=== PATIENT | female | born 1950 | race Caucasian/White ===

== ENCOUNTER 2016-10-13 05:56 | Inpatient (IN) | payer MEDICARE, OTHER ==
[~2016-10-13] VITALS: Ht 165.1 cm; Wt 79.1 kg
[2016-10-13] VITALS (14 sets, daily range): BP systolic 118–158; BP diastolic 54–100; Ht 165.1 cm; Wt 79.1 kg
--- NOTE | 2016-10-13 05:40 | NUR ---
PT ARRIVED VIA BED AND EMS STAFF. AOX4. PARTIAL LINEN CHANGE COMPLETE. DENIES PAIN AT THIS TIME. ICU MONITORING ATTACHED. VSS, UNLABORED RESPIRATIONS. PT REPOSITIONED FOR COMFORT. CALL LIGHT AND BEDSIDE TABLE WITHIN PT REACH. CPOC.
[~2016-10-13 05:56] MED LIST: BAYER CHEWABLE81 MG PO; CARDURA2 MG PO; LIPITOR10 MG PO; PLAVIX75 MG PO; PRINIVIL20 MG PO
[2016-10-13 06:46] LABS: BASOPHILS 0.1 % (0.0-2.0); EOSINOPHILS 0.4 % (0-7); HEMATOCRIT 31.2 % (36.0-48.0); IMMATURE GRANULOCYTES 0.4 % (0-5); LYMPHOCYTES 8.3 % (15-50); MCH 29.2 pg (26.0-34.0); MCHC 32.1 g/dL (31.0-37.0); MEAN PLATELET VOLUME 10.1 fL (7.4-10.4); MONOCYTES 5.5 % (2-11); NEUTROPHILS 85.3 % (40-80); PLATELET COUNT 191 10x3/uL (130-400); RBC 3.43 10x6/uL (4.00-5.40); RDW 15.3 % (11.5-14.5); WBC 16.6 10x3/uL (4.8-10.8)
--- NOTE | 2016-10-13 07:00 | NUR ---
REC'D REPORT FROM OUTGOING RN - PT RESTING SUPINE IN BED VSS. REQUESTS BED LONGO TO URINATE. BATHED PT. NO ACTIVE BLEEDING NOTED. CONTINUE POC.
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
[2016-10-13] MEDS ORDERED: ISOSORBIDE MONO30 M1 PO (10:02)
[2016-10-13] MEDS ORDERED: NORVASC10 MG PO (10:03)
[2016-10-13] MEDS ORDERED: CARDURA4 MG PO (10:04)
[2016-10-13 11:49] LABS: HEMOGLOBIN 10.1 g/dL (12-16)
--- NOTE | 2016-10-13 12:00 | NUR ---
PT EATING CLEAR LIQUID DIET - DR. ELLISON AT BEDSIDE FOR ASSEMENT.
--- NOTE | 2016-10-13 12:10 | NUR ---
PT EATHING LUNCH - DR. MEJÍA AT BEDSIDE FOR ASSESSMENT - REVIEWED ELVATED B/P - ORDERS REC'D WILL CONTINUE POC
[2016-10-13 12:56] LABS: APPEARANCE CLEAR (CLEAR); BACTERIA FEW /hpf (NONE SEEN); BILIRUBIN NEGATIVE (NEGATIVE); COLOR STRAW (YELLOW); EPITHELIAL CELLS 0-5 /hpf (0-5); GLUCOSE NEGATIVE (NEGATIVE); KETONE NEGATIVE (NEGATIVE); LEUKOCYTE ESTERASE NEGATIVE (NEGATIVE); NITRITE NEGATIVE (NEGATIVE); PROTEIN NEGATIVE (NEGATIVE); RED CELLS - URINE 0-5 /hpf (0-5); UROBILINOGEN NORMAL (NORMAL); WHITE CELLS - URINE 0-5 /hpf (0-5)
--- NOTE | 2016-10-13 13:00 | NUR ---
SPOKE TO ELIO KULKARNI, INFORMED THIS RN PT HAS DEMONSTRATED SOME 'FORGETFULLNESS', PT LIVES ALONE. WILL INFORM
--- NOTE | 2016-10-13 14:18 | NUR ---
PT RESTING, EYES CLOSED - EASILY AROUSED BY TACKTILE STIMULI - PT ASKED FOR BED PAIN TO URINATE. PT STATED HE PAIN WAS STILL 04/18.
--- NOTE | 2016-10-13 15:20 | NUR ---
PAGED DR. ELLISON - PT SPIKED TEMP 101.5, TACHYCARDIA 131, ELEVATED WBC 16.5, PT HAS NO GI BLEED ON THIS SHIFT. REVIEWED RECENT H/H 07/09. TOV ORDERED CXR, BLOOD CULTURE X 2, ROCEPHIN Q24, ZITRHOMAX 500 G Q24, FLU SWAB. ALSO, ASKED MD IF PT IS MEDICALLY STABLE? CAN PT BE TRANSFERRED TO THE FLOOR IF ICU BED IS NEEDED. MD APPROVED TRANSFER IF NECESSARY.
--- NOTE | 2016-10-13 16:00 | NUR ---
I&O COMPLETE - DINNER TRAY SET UP FOR PT - CONT. POC.
--- NOTE | 2016-10-13 17:39 | NUR ---
PAGED DR. RIBERA - ASKED IF PT MAY BE TRANSFERRED TO [facility]. REVIEWED H/H 10.10/09. VSS EXCEPT ELEVATED TEMP AND TACHYCARDIA 117/BPM, B/P 121/74 NO BLEEDS SINCE PT WAS ADMITTED TO ICU. AGREED TO TRANSFER.
--- NOTE | 2016-10-13 17:52 | NUR ---
CALLED REPORT TO SHIELA MCNALLY, MED SURG, TELEMETERY.
--- NOTE | 2016-10-13 18:23 | NUR ---
PATIENT RECEIVED TO FLOOR FROM ICU VIA BED. NO SIGNS OF DISTRESS NOTED. SCDS ON BILATERALLY. ORIENTED TO ROOM. SIDE RAILS UP X2. BED IN LOW POSITION. CALL LIGHT IN REACH.
--- NOTE | 2016-10-13 18:27 | NUR ---
TRANSFERRED PT TO ROOM 2202 ON TELEMETERY VIA BED X2. ALL PERSONAL POSSESSIONS WERE SENT WITH PT.
[2016-10-13] MEDS ORDERED: METOPROLOL TART50 MG PO (18:48)
[2016-10-13] MEDS ORDERED: LIPITOR80 MG PO (18:48)
[2016-10-13 18:56] LABS: HEMATOCRIT 31.2 % (36.0-48.0); HEMOGLOBIN 10.2 g/dL (12-16)
[2016-10-13] MEDS ORDERED: CARDURA2 MG PO (19:16)
[2016-10-14] VITALS (7 sets, daily range): BP systolic 94–138; BP diastolic 47–71
[2016-10-14 03:43] LABS: BASOPHILS 0.1 % (0.0-2.0); EOSINOPHILS 0.2 % (0-7); HEMATOCRIT 29.9 % (36.0-48.0); HEMOGLOBIN 9.8 g/dL (12-16); IMMATURE GRANULOCYTES 0.4 % (0-5); LYMPHOCYTES 9.7 % (15-50); MCH 28.8 pg (26.0-34.0); MCHC 32.8 g/dL (31.0-37.0); MONOCYTES 15.3 % (2-11); NEUTROPHILS 74.3 % (40-80); PLATELET COUNT 186 10x3/uL (130-400); RDW 15.2 % (11.5-14.5); WBC 11.2 10x3/uL (4.8-10.8)
[2016-10-14 03:44] LABS: MCV 87.9 fL (80.0-100.0)
--- NOTE | 2016-10-14 07:10 | NUR ---
PATIENT RECEIVED IN LOW KIM POSITION RESTING QUIETLY. RESPIRATIONS EVEN AND UNLABORED. SIDE RAILS UP X2. BED IN LOW POSITION. CALL LIGHT IN REACH.
--- NOTE | 2016-10-14 08:20 | NUR ---
PATIENT SITTING UP ON SIDE OF BED ALERT. RESPIRATIONS EVEN AND UNLABORED. SCHEDULED MEDICATION ADMINISTERED. C/O PAIN 10/10 TO RIGHT KNEE. 2 TAB NORCO ADMINISTERED PER PRN ORDER. NO FURTHER NEEDS VOICED. SIDE RAILS UP X2. BED IN LOW POSITION. CALL LIGHT IN REACH.
[2016-10-14 10:59] LABS: HEMATOCRIT 30.4 % (36.0-48.0); HEMOGLOBIN 9.8 g/dL (12-16)
--- NOTE | 2016-10-14 11:25 | NUR ---
PATIENT IN BED RESTING WITH EYES CLOSED. RESPIRATIONS EVEN AND UNLABORED. WAKES EASY. SCHEDULED MEDICATION ADMINISTERED. FAMILY PRESENT. SIDE RAILS UP X1. BED IN LOW POSITION. CALL LIGHT IN REACH.
--- NOTE | 2016-10-14 13:30 | NUR ---
PATIENT SITTING UP ON SIDE OF BED ALERT AND VISITING WITH GUESTS. RESPIRATIONS EVEN AND UNLABORED. SIDE RAILS UP X2. BED IN LOW POSITION. CALL LIGHT IN REACH.
--- NOTE | 2016-10-14 15:40 | NUR ---
PATIENT SITTING UPRIGHT IN BED WITH FAMILY PRESENT. DENIES NEEDS. BED IN LOW POSITION. CALL LIGHT IN REACH.
--- NOTE | 2016-10-14 17:00 | NUR ---
PATIENT SITTING UPRIGHT IN BED WATCHING TV. DENIES NEEDS. FAMILY PRESENT. CALL LIGHT IN REACH. BED IN LOW POSITION.
--- NOTE | 2016-10-14 23:06 | NUR ---
PT LAYING IN BED NO DISTRESS OBSERVED RESPERATIONS EVEN AND UNLABORED ON ROOM AIR CALL LIGHT IN REACH SR X2 BED LOW AND LOCKED WILL MONITOR
[2016-10-15 04:00] VITALS: BP 130/64
[2016-10-15 05:42] LABS: BASOPHILS 0.2 % (0.0-2.0); EOSINOPHILS 1.5 % (0-7); HEMATOCRIT 27.6 % (36.0-48.0); HEMOGLOBIN 8.8 g/dL (12-16); IMMATURE GRANULOCYTES 0.3 % (0-5); LYMPHOCYTES 15.5 % (15-50); MCH 28.3 pg (26.0-34.0); MCHC 31.9 g/dL (31.0-37.0); MCV 88.7 fL (80.0-100.0); MEAN PLATELET VOLUME 10.4 fL (7.4-10.4); MONOCYTES 15.3 % (2-11); NEUTROPHILS 67.2 % (40-80); PLATELET COUNT 200 10x3/uL (130-400); RBC 3.11 10x6/uL (4.00-5.40); RDW 15.1 % (11.5-14.5); WBC 10.1 10x3/uL (4.8-10.8)
[2016-10-15 06:13] LABS: ANION GAP 11.7 mmol/L (8-16); CARBON DIOXIDE 25.4 mmol/L (21.0-32.0); POTASSIUM - SERUM 3.1 mmol/L (3.5-5.1)
--- NOTE | 2016-10-15 07:56 | NUR ---
PT ASSESSMENT COMPLETE NO ACUTE DISTRESS NOTED VOICES ALL NEEDS OT STAFF AWAKE AND ALERT ORIETNED X 3 LUNGS CLEAR BILATERALLY BOWEL SOUNDS ACTIVE X 4 QUADS DENEIS ACUTE VISIBLE BLOOD TO STOOL AT THIS TIME. FAMILY AT BEDSIDE. CALL LIGHT IN REACH SIDE RAILS UP X 2
[2016-10-15 08:10] VITALS: BP 125/64
[2016-10-15 11:06] LABS: HEMATOCRIT 29.8 % (36.0-48.0); HEMOGLOBIN 9.7 g/dL (12-16)
[2016-10-15 11:31] VITALS: BP 108/54
--- NOTE | 2016-10-15 14:41 | NUR ---
NUTRITION MONITORING & EVAL CHART REVIEWED. PT TOLERATING FULL LIQUID DIET, 100% INTAKE. WILL MONITOR DIET ADVANCEMENT, PT PROGRESS. RD FOLLOWING
[2016-10-15 16:26] VITALS: BP 116/54
--- NOTE | 2016-10-15 18:17 | NUR ---
PIV RESIDTED DUE TO INFILTRATION TO LEFT INNER FORARM 22 GA X 1 STICK. PAIN MED PER ORDER GIVEN TOLERATES WELL
[2016-10-15 18:50] LABS: HEMATOCRIT 27.6 % (36.0-48.0)
[2016-10-15 21:00] VITALS: BP 91/47
[2016-10-16] VITALS (17 sets, daily range): BP systolic 70–125; BP diastolic 39–85
--- NOTE | 2016-10-16 04:00 | NUR ---
PATIENT SLEEPING WITH NO DISTRESS NOTED. SISTER AT BEDSIDE. CALL LIGHT WITHIN REACH.
[2016-10-16 05:58] LABS: BASOPHILS 0.3 % (0.0-2.0); EOSINOPHILS 2.9 % (0-7); HEMATOCRIT 26.6 % (36.0-48.0); HEMOGLOBIN 8.5 g/dL (12-16); IMMATURE GRANULOCYTES 0.6 % (0-5); LYMPHOCYTES 18.4 % (15-50); MCH 28.3 pg (26.0-34.0); MCV 88.7 fL (80.0-100.0); MEAN PLATELET VOLUME 10.5 fL (7.4-10.4); MONOCYTES 8.9 % (2-11); NEUTROPHILS 68.9 % (40-80); PLATELET COUNT 218 10x3/uL (130-400); RDW 14.8 % (11.5-14.5); WBC 8.9 10x3/uL (4.8-10.8)
[2016-10-16 06:25] LABS: ALBUMIN 2.6 g/dL (3.4-5.0); ALKALINE PHOSPHATASE 93 U/L (46-116); ALT (SGPT) 17 U/L (10-68); CALC OSMOLALITY 277 mosm/kg (275-300); CALCIUM 8.1 mg/dL (8.5-10.1); CARBON DIOXIDE 24.5 mmol/L (21.0-32.0); CHLORIDE - SERUM 105 mmol/L (98-107); CREATININE - SERUM 0.8 mg/dL (0.6-1.3); GLUCOSE 117 mg/dL (74-106); POTASSIUM - SERUM 3.5 mmol/L (3.5-5.1); PROTEIN - SERUM 5.9 g/dL (6.4-8.2); SODIUM 139 mmol/L (136-145); eGFR NON AFRICAN AMERICAN 76 mL/min (90-120)
[2016-10-16 06:27] LABS: UREA NITROGEN 10 mg/dL (7-18)
--- NOTE | 2016-10-16 07:40 | NUR ---
PT RECEIVED LYING IN BED WATCHING TV. ASSESSMENT COMPLETED. PT STATES SHE HAD ONE BM 10/16 THAT WAS BLOODY AND ANOTHER ONE THAT ONLY HAD SPOTTING OF BLOOD. PT DENIES NEEDS AT THIS TIME. BED LOW. PHONE AND CALL LIGHT IN REACH. SIDE RAILS UP X2.
--- NOTE | 2016-10-16 09:14 | NUR ---
AM MEDS GIVEN. PT DENIES NEEDS.
[2016-10-16 10:01] LABS: BASOPHILS 0.2 % (0.0-2.0); EOSINOPHILS 2.4 % (0-7); HEMATOCRIT 25.6 % (36.0-48.0); HEMOGLOBIN 8.3 g/dL (12-16); IMMATURE GRANULOCYTES 0.5 % (0-5); LYMPHOCYTES 12.3 % (15-50); MCH 28.8 pg (26.0-34.0); MCHC 32.4 g/dL (31.0-37.0); MCV 88.9 fL (80.0-100.0); MEAN PLATELET VOLUME 10.2 fL (7.4-10.4); MONOCYTES 7.1 % (2-11); NEUTROPHILS 77.5 % (40-80); PLATELET COUNT 215 10x3/uL (130-400); RBC 2.88 10x6/uL (4.00-5.40); RDW 14.9 % (11.5-14.5); WBC 8.9 10x3/uL (4.8-10.8)
--- NOTE | 2016-10-16 11:34 | NUR ---
PT SITTING UP IN BED WITH FAMILY AT BEDSIDE. ADMINISTERED FLORAJEN PO. DENIES NEEDS AT THIS TIME. BED LOW. PHONE AND CALL LIGHT IN REACH. SIDE RAILS UP X2.
--- NOTE | 2016-10-16 13:12 | NUR ---
APPLIED DICLOFENAC TOPICAL GEL TO PTS RIGHT KNEE. PT DENIES OTHER NEEDS. BED LOW. PHONE AND CALL LIGHT IN REACH. SIDE RAILS UP X2.
--- NOTE | 2016-10-16 14:09 | NUR ---
PT SITTING UP IN BED WITH FAMILY MEMBER AT BEDSIDE. BP 70/42 NO SIGNS OF ACUTE DISTRESS NOTED. BLOOD CONSENT SIGNED AND ON CHART.
--- NOTE | 2016-10-16 14:22 | NUR ---
FLUID BOLUS INITIATED PER ORDER. PT BP 70/42. IV TO LEFT F/A PATENT. PULSE 118 SINUS TACH. NO ACUTE DISTRESS NOTED AT THIS TIME.
--- NOTE | 2016-10-16 14:33 | NUR ---
PT REFUSED BED ALARM. PT SIGNED REFUSAL. PLACED ON CHART.
--- NOTE | 2016-10-16 14:41 | NUR ---
Patient Name: NILTON AGVIRIA Admission Status: Elective Accout number: [id number] Admission Date: 10-13-2016 : 1950 Admission Diagnosis:GASTROINTESTINAL HEMORRHAGE, UNSPECIFIED Attending: EVERARDO Current LOS: 3 Anticipated DC Date: 10-18-2016 Planned Disposition: Home with Home Health Primary Insurance: [place] [employer] [place] Discharge Planning Comments: CM MET WITH PATIENT REGARDING DISCHARGE NEEDS AND PLANS. PATIENT STATED SHE LIVES ALONE AND HAS A SISTER (PETE) THAT HELPS WHEN NEEDED. PATIENT HAS 1 STEP W/O RAILS TO ENTER HOME AND NO STAIRS INSIDE. PATIENT STATED SHE IS INDEPENDENT WITH HER CARE AND HAS WALKER, WHEELCHAIR, AND SHOWER CHAIR AT HOME. PATIENTS PCP IS DR. ESCALANTE AND PHARMACY IS [facility]. PATIENT IS INTERESTED IN HOME HEALTH OR [facility]. CM WILL CONTINUE TO FOLLOW PATIENT WITH D/C NEEDS AND PLANS. PCP DR. ESCALANTE [facility]- [phone] PETE (SISTER) [phone] Furs Salesperson: Ya Weems Is the patient Alert and Oriented? Yes 0 * How many steps to enter\exit or inside your home? 1 W/O RAIL 0 * PCP DR. ESCALANTE 0 * Pharmacy [facility] 0 * Preadmission Environment Home Alone 0 * ADLs Independent 0 * Equipment Shower Chair Walker Wheelchair 0 * List name and contact numbers for known caregivers / representatives who currently or will assist patient after discharge: PETE (SISTER) [phone] 0 * Community resources currently utilized None 0 * Additional services required to return to the preadmission environment? Yes 0 * Can the patient safely return to the preadmission environment? Yes 0 * Has this patient been hospitalized within the prior 30 days at any hospital? No 0 Grand Total: 0
--- NOTE | 2016-10-16 14:58 | NUR ---
IV BOLUS COMPLETE. PT BP 125/67 AND HR 80. RESPIRATIONS 17, O2 96% R/A. TEMP 98.7. NO ACUTE DISTRESS NOTED AT THIS TIME.
--- NOTE | 2016-10-16 15:20 | NUR ---
20G IV SITED TO PT'S LEFT FOREARM X2 ATTEMPTS. PT TOLERATED WITH NO COMPLAINTS OF PAIN.
--- NOTE | 2016-10-16 15:30 | NUR ---
REPORT CALLED TO SHIELA OSBORN IN ICU.
--- NOTE | 2016-10-16 15:46 | NUR ---
BLOOD INITIATED AT THIS TIME PER ORDER. FAMILY AT BEDSIDE. TRANSFERRING TO ROOM 2307 VIA WHEELCHAIR.
--- NOTE | 2016-10-16 16:04 | NUR ---
PT ARRIVED TO ROOM VIA WHEELCHAIR. PT IS ALERT AND CONVERSANT. UNIT OF PRBC RUNNING IN LOWER LEFT FOREARM. CEFTRIAXONE RUNNING IN UPPER LEFT FOREARM. PT IS ON ROOM AIR. SATS OF 95%, HR 111, BP 120/68, 16 RESPIRATIONS. TEMP WITH TEMPORAL IS 96.8. BLOOD ADMIN SHEET SHOWS STARTING TEMP IS 99.3. WILL RECHECK TEMP WITH DIFFERENT THERMOMETER. PT HAS SCD'S, DENIES PAIN OTHER THAN IN HER RIGHT KNEE THAT HAS SWELLING.
--- NOTE | 2016-10-16 16:30 | NUR ---
PT BLOOD ADMINISTRATION SHEET STARTED BY NURSES ON MEDSURGE, BUT NO SIGNATURE ON PAGE OF WHO INITIATED THE ADMINISTRATION. CALLED AND SPOKE TO ABEL KUO AND SHE IS TO COME AND SIGN IT.
--- NOTE | 2016-10-16 17:07 | NUR ---
SISTER AT BEDSIDE AT THIS TIME. PT CONVERSANT. NO DISTRESS. HR 110, BP 116/65.
[2016-10-16 17:43] LABS: HEMATOCRIT 25.5 % (36.0-48.0); HEMOGLOBIN 8.2 g/dL (12-16)
--- NOTE | 2016-10-16 19:35 | NUR ---
okayed patient to transfer to floor tonight if we need a bed, if not tomorrow morning. States patient does not have to be in ICU.
--- NOTE | 2016-10-16 19:56 | NUR ---
Rehab Note- Rehab Prescreen Order received. Uncertain of patient's IRF benefits, will follow up wih the business office. Thank ou for this referral! Linnette Miller RN Clinical Liaison, Rehab Care/Debbie
--- NOTE | 2016-10-16 21:46 | NUR ---
IV RESITED TO LEFT WRIST. 2ND UNIT OF PRBC INFUSING. NO SIGNS OF REACTION. WILL CONTINUE TO MONITOR.
--- NOTE | 2016-10-16 23:41 | NUR ---
BLOOD FINISHED INFUSING AT 4339
[2016-10-17] VITALS (8 sets, daily range): BP systolic 102–124; BP diastolic 51–65
--- NOTE | 2016-10-17 03:00 | NUR ---
PT SLEEPING IN ROOM. VSS. WILL CONTINUE TO MONITOR.
[2016-10-17 04:54] LABS: BASOPHILS 0.2 % (0.0-2.0); EOSINOPHILS 4.4 % (0-7); IMMATURE GRANULOCYTES 0.8 % (0-5); LYMPHOCYTES 18.8 % (15-50); MCHC 33.7 g/dL (31.0-37.0); MEAN PLATELET VOLUME 9.8 fL (7.4-10.4); MONOCYTES 9.5 % (2-11); NEUTROPHILS 66.3 % (40-80); PLATELET COUNT 231 10x3/uL (130-400); RDW 15.4 % (11.5-14.5); WBC 8.3 10x3/uL (4.8-10.8)
[2016-10-17 05:35] LABS: ALBUMIN 2.6 g/dL (3.4-5.0); ANION GAP 12.8 mmol/L (8-16); BILIRUBIN - TOTAL 1.25 mg/dL (0.2-1.3); CALCIUM 8.2 mg/dL (8.5-10.1); CARBON DIOXIDE 26.3 mmol/L (21.0-32.0); CREATININE - SERUM 0.9 mg/dL (0.6-1.3); POTASSIUM - SERUM 3.1 mmol/L (3.5-5.1); PROTEIN - SERUM 6.3 g/dL (6.4-8.2)
[2016-10-17 05:48] LABS: HEMATOCRIT 31.5 % (36.0-48.0); HEMOGLOBIN 10.6 g/dL (12-16); MCV 86.3 fL (80.0-100.0); RBC 3.65 10x6/uL (4.00-5.40)
--- NOTE | 2016-10-17 07:30 | NUR ---
PT AWAKE, ALERT AND ORIENTED. NO REPORTED BLOOD BM OVERNIGHT. VSS. SHIFT ASSESSMENT COMPLETE. SEE FLOWSHEET FOR FINDINGS. PT IS ON ROOM AIR.
--- NOTE | 2016-10-17 09:45 | NUR ---
PATIENT SITTING UP IN BED ALERT. NO SIGNS OF DISTRESS NOTED. SISTER AT BEDSIDE. SIDE RAILS UP X2. BED IN LOW POSITION. CALL LIGHT IN REACH.
--- NOTE | 2016-10-17 09:50 | NUR ---
PT ARRIVED TO THE FLOOR AT THIS TIME FROM ICU. ORIENTED PT TO ROOM AND FLOOR. FIRST OF FOUR POTASSIUM RIDERS HANGING AT THIS TIME PER PROTOCOL. WILL CONTINUE TO MONITOR.
[2016-10-17 11:12] LABS: HEMATOCRIT 31.6 % (36.0-48.0); HEMOGLOBIN 10.7 g/dL (12-16)
--- NOTE | 2016-10-17 12:11 | NUR ---
Patient transfered to ICU overnight for hypotension. [facility]. Rehab will continue to follow her as she progresses with PT. Aminata Carpio RN Clinical Liaison, Rehab
--- NOTE | 2016-10-17 14:30 | NUR ---
PT TAKEN FOR CT.
--- NOTE | 2016-10-17 17:00 | NUR ---
STARTED GOLYTLY AT THIS TIME.
--- NOTE | 2016-10-17 17:59 | NUR ---
OT NOTE: PT COMPLETED TOILETING WITH SBA. PT COMPLETED TOILET HYGIENE WITH SBA. PT COMPLETED DYNAMIC STANDING/SITTING AXS FOR INCREASED I WITH ADLS. PT COMPLETED BUE AROM EXS AT EOB. THANK YOU, BUCK CALVILLO/Reagan
--- NOTE | 2016-10-17 18:20 | NUR ---
PT HAD A LARGE DARK COLORED STOOL IN THE BED AT THIS TIME. PT IS ASYMPTOMATIC. BED IN LOW POSITION AND CALL LIGHT WITHIN REACH. WILL CONTINUE TO MONTIOR.
[2016-10-17 19:35] LABS: HEMATOCRIT 30.8 % (36.0-48.0); HEMOGLOBIN 10.5 g/dL (12-16)
--- NOTE | 2016-10-17 20:00 | NUR ---
PATIENT SITTING UP IN BED TALKING WITH SISTER, ASSESSMENT COMPLETED, NO ACUTE DISTRESS NOTED, ENCOURAGED GO LYTELY , REMINDED OF NPO STATUS AFTER MIDNIGHT, UNDERSTANDING VOICED, DENIES NEEDS, CL IN REACH, WILL MONITOR
--- NOTE | 2016-10-17 21:50 | NUR ---
MEDS GIVEN PER MAR, VINICIO WELL, DENIES FURTHER NEEDS, SR'S UP X2, CL IN REACH
[2016-10-18 01:00] VITALS: BP 115/52
[2016-10-18 05:00] VITALS: BP 108/51
[2016-10-18 05:27] LABS: BASOPHILS 0.4 % (0.0-2.0); HEMOGLOBIN 10.9 g/dL (12-16); IMMATURE GRANULOCYTES 0.7 % (0-5); LYMPHOCYTES 21.2 % (15-50); MCH 28.8 pg (26.0-34.0); MCV 87.1 fL (80.0-100.0); MEAN PLATELET VOLUME 9.5 fL (7.4-10.4); MONOCYTES 10.7 % (2-11); PLATELET COUNT 275 10x3/uL (130-400); RBC 3.79 10x6/uL (4.00-5.40); RDW 15.5 % (11.5-14.5); WBC 8.2 10x3/uL (4.8-10.8)
[2016-10-18 05:53] LABS: ANION GAP 15.1 mmol/L (8-16); BILIRUBIN - TOTAL 0.6 mg/dL (0.2-1.3); CALCIUM 8.4 mg/dL (8.5-10.1); CARBON DIOXIDE 26.4 mmol/L (21.0-32.0); CREATININE - SERUM 0.9 mg/dL (0.6-1.3); POTASSIUM - SERUM 3.5 mmol/L (3.5-5.1); PROTEIN - SERUM 6.5 g/dL (6.4-8.2)
[2016-10-18 07:44] VITALS: BP 114/56
--- NOTE | 2016-10-18 07:50 | NUR ---
WALKING ROUNDS MADE AT THIS TIME. IV TO LEFT FOREARM LEAKING AROUND INSERTION SITE. IV D/C WITH CATH TIP INTACT. CONEST FORMS SIGNED AND WITNESSED FOR COLONOSCOPY WITH TIVA. PT DENIES QUESTIONS OR CONCERNS. ALERT AND ORIENTED X4, RESPIRATIONS EVEN AND NON LABORED. CALL LIGHT IN REACH, WILL CONTINUE WITH PLAN OF CARE. SRX2 WITH BED IN LOWEST POSITION AND WHEELS LOCKED.
--- NOTE | 2016-10-18 08:50 | NUR ---
SCHEDULED IV MEDICATIONS ADMINSITERED AT THIS TIME. 20G IV RE-SITED TO PT'S LEFT UPPER FOREARM X3 ATTEMPTS. PT TOLERATED WITHOUT COMPLAINTS. REMAINS NPO FOR COLONOSCOPY. DENIES NEEDS AT PRESENT. CALL LIGHT IN REACH, WILL CONTINUE WITH PLAN OF CARE.
[2016-10-18 10:47] LABS: HEMATOCRIT 34.2 % (36.0-48.0); HEMOGLOBIN 11.4 g/dL (12-16)
--- NOTE | 2016-10-18 11:35 | NUR ---
REMAINS NPO FOR COLONOSCOPY AT THIS TIME. SISTER AT BEDSIDE. DENIES NEEDS AT THIS TIME. CALL LIGHT IN REACH, WILL CONTINUE WITH PLAN OF CARE.
[2016-10-18 12:08] VITALS: BP 126/65
--- NOTE | 2016-10-18 12:55 | NUR ---
NUTRITION MONITORING & EVAL CHART REVIEWED. PT NPO FOR COLONOSCOPY. WILL PROVIDE DIET WHEN RESUMED, MONITOR PO INTAKE. RD FOLLOWING
--- NOTE | 2016-10-18 13:45 | NUR ---
SCHEDULED MEDICATIONS ADMINISTERED AT THIS TIME. PRE OPERATIVE MEDICATIONS ADMINSITERED AT THIS TIME. CALL LIGHT IN REACH. WILL CONTINUE WITH PLAN OF CARE.
[2016-10-18 15:49] VITALS: BP 107/52
--- NOTE | 2016-10-18 19:30 | NUR ---
PATIENT SITTING UP IN BED TALKING WITH SISTER, ASSESMENT COMPLETED, NO ACUTE DISTRESS NOTED, DENIES NEEDS AT THIS TIME, FALL PRECAUTIONS IN PLACE, CL IN REACH, WILL MONITOR
[2016-10-18 20:38] VITALS: BP 142/75
--- NOTE | 2016-10-18 20:57 | NUR ---
MEDS GIVEN PER MAR, VINICIO WELL, FAMILY IN ROOM, CL IN REACH
[2016-10-19] VITALS: BP 115/57
[2016-10-19 02:53] LABS: BASOPHILS 0.4 % (0.0-2.0); EOSINOPHILS 5.4 % (0-7); HEMOGLOBIN 10.7 g/dL (12-16); IMMATURE GRANULOCYTES 0.4 % (0-5); LYMPHOCYTES 18.5 % (15-50); MCHC 32.4 g/dL (31.0-37.0); MEAN PLATELET VOLUME 9.4 fL (7.4-10.4); MONOCYTES 8.7 % (2-11); NEUTROPHILS 66.6 % (40-80); PLATELET COUNT 272 10x3/uL (130-400); RBC 3.69 10x6/uL (4.00-5.40); RDW 15.4 % (11.5-14.5); WBC 9.5 10x3/uL (4.8-10.8)
[2016-10-19 03:02] LABS: MCV 89.4 fL (80.0-100.0)
[2016-10-19 03:06] LABS: ALBUMIN 2.8 g/dL (3.4-5.0); ANION GAP 11.2 mmol/L (8-16); BILIRUBIN - TOTAL 0.38 mg/dL (0.2-1.3); CALCIUM 8.5 mg/dL (8.5-10.1); CARBON DIOXIDE 28.2 mmol/L (21.0-32.0); POTASSIUM - SERUM 3.4 mmol/L (3.5-5.1); PROTEIN - SERUM 6.6 g/dL (6.4-8.2)
[2016-10-19 04:00] VITALS: BP 116/61
--- NOTE | 2016-10-19 05:49 | NUR ---
40 MEQ KCL GIVEN PER E. PROTOCOL FOR LEVEL OF 3.4, VINICIO WELL, LABS ORDERED TO RECHECK, CL IN REACH
[2016-10-19 08:03] VITALS: BP 137/62
--- NOTE | 2016-10-19 09:15 | NUR ---
AWAKE AND ALERT AT THIS TIME. TOLERATING A REGULAR DIET WITHOUT NAUSEA OR BLOODY STOOLS. PAIN TO RIGHT KNEE STABLE AT 5/10 ON PAIN SCALE. DENIES NEEDS AT THIS TIME. REFUSES BED ALARM AND DECLINATION SHEET ON PT'S CHART. CALL LIGHT IN REACH, SRX2 WITH BED IN LOWEST POSITION AND WHEELS LOCKED. WILL CONTINUE WITH PLAN OF CARE.
[2016-10-19 11:11] VITALS: BP 122/62
[2016-10-19 11:23] LABS: HEMATOCRIT 34.7 % (36.0-48.0); HEMOGLOBIN 11.2 g/dL (12-16)
--- NOTE | 2016-10-19 13:04 | NUR ---
FLU VACCINATION INTFORMATION SHEET PROVIDED TO PT. PT DENIES QUESTIONS OR CONCERNS. ADMINISTERED VACCINATION IN LEFT DELTOID MUSCLE. TOLERATED W/O COMPLAINTS. TO BE DISCHARGED TO REHAB LATER TODAY. DENIES FURTHER NEEDS AT PRESENT. WILL CONTINUE WITH PLAN OF CARE.
[2016-10-19] MEDS ORDERED: VOLTAREN100 GM TOPICAL (14:11)
[2016-10-19] MEDS ORDERED: ZITHROMAX 500M500 MG IV (14:11)
[2016-10-19] MEDS ORDERED: ROCEPHIN 1 GM/D51 G1 IV (14:11)
[2016-10-19] MEDS ORDERED: PROTONIX I40 MG/VIAL IV (14:11)
--- NOTE | 2016-10-19 14:21 | OP ---
PATIENT NAME: NILTON CHRISTINE MEDICAL RECORD: [id number] :52 LOCATION:[id number] ADMISSION DATE:10/13/16 SURGEON: ARNOL WOODWARD MD DATE OF OPERATION: 10/18/2016 PROCEDURE: Colonoscopy with biopsy and EGD with biopsy. ATTENDING PHYSICIAN: Carine Fernandez MD PRIMARY CARE PHYSICIAN: Charito Escalante MD. INDICATIONS: Ms. Christine is a very pleasant 66-year-old woman with a history of coronary artery disease, status post PTCA to the RCA with stent placement approximately a year and a half ago (Dr Juanpablo Goldberg) who presented with lower GI bleeding. She had 3 episodes at home of significant rectal bleeding, but then after admission, her rectal bleeding resolved. She had one until 2 days ago when she had recurrence of her rectal bleeding times 1 with concomitant hypotension. She had a CT of her abdomen and pelvis on 10/17/2016 with finding showing the distal aorta to have significant atherosclerotic calcification and stenosis at the proximal iliac vessels, no obvious colonic masses were identified. Otherwise, the liver, spleen, stomach, gallbladder, pancreas, adrenal glands, kidneys, bowel gas pattern and bladder were unremarkable. She presents for inpatient colonoscopy and EGD to further evaluate episodes of gastrointestinal bleeding. PREMEDICATIONS: Total IV anesthesia, propofol 650 mg (history of coronary artery disease). INSTRUMENT: [employer] video colonoscope and Olympus video gastroscope. PROCEDURE AND FINDINGS: After receiving informed consent, Ms. Christine was prepared for colonoscopy. Digital rectal exam was performed that showed a few external hemorrhoidal tags. No fissure or fistulas, normal sphincter tone, no palpable rectal masses. The colonoscope was introduced per rectally and advanced to the cecum without difficulty. The cecum, IC valve, and appendiceal orifice were identified. As the colonoscope was withdrawn, careful inspection was made of the chris of the colon. Overall mucosa had normal vascular and fold pattern. There was no blood seen in the colon. There were multiple diverticula seen in the distal transverse, descending and sigmoid colon, but there were no signs of bleeding from any of the diverticula. There were multiple small (0.25 to 0.3 cm) sessile polyps scattered in the distal descending and sigmoid colon. Multiple polyps were cold biopsied. Retroflexion in rectum showed no internal hemorrhoids. A fair prep was present. Ms. Christine was then prepared for EGD. Gastroscope was introduced per orally and advanced to the duodenum without difficulty. The esophageal mucosa was without erythema, ulcers, strictures, masses, appeared normal down the GE junction. A small sliding type hiatal hernia is present. Gastric mucosa was notable only for mild prepyloric erythema and antral biopsies were obtained to rule out Helicobacter pylori. No lesions were seen along the incisura, in the cardia or fundus or in the body of the stomach. Pylorus was patent and competent. Duodenal mucosa was without erythema or ulcers, appeared normal through the second portion. Biopsies were taken from the second portion of duodenum to rule out celiac disease. The gastroscope was then withdrawn. Ms. Christine tolerated the procedure well, OPERATIVE REPORT [id number] NILTON CHRISTINE Dequan no immediate complications. ASSESSMENT: 1. Moderate left-sided diverticulosis coli, likely source of recent gastrointestinal bleeding with bleeding resolved as the effects of Plavix have waned. 2. Multiple small polyps in the descending and sigmoid colon, status post cold biopsy. 3. Small hiatal hernia. 4. Mild gastritis. RECOMMENDATIONS: 1. Advance diet. 2. Recheck CBC in a.m. 3. As her RCA stent is approximately a year and a half old, if possible, recommend resuming enteric-coated aspirin 81 mg p.o. daily, only and not resume Plavix at this time to reduce her risk of her recurrent bleeding. I recommend follow up with [facility] in the very near future. TRANSINT:[id number] Voice Confirmation ID: [id number] DOCUMENT ID: [id number] ARNOL WOODWARD MD at 1421 CC: CHARITO ESCALANTE MD [id number] DICTATION DATE: 10/18/16 1800 MED SURG RN: 10/18/16 1908 ADM IN [facility] [address] [place] [address]
--- NOTE | 2016-10-19 14:54 | NUR ---
CM REASSESSMENT NOTE: PATIENT IS DISCHARGING TO IP REHAB TODAY. FAMILY AWARE.
--- NOTE | 2016-10-19 17:00 | NUR ---
REPORT CALLED TO SHIELA ALEJANDRO ON REHAB. PAPERWORK SIGNED AND PT WISHES TO TRANSFER TO REHAB AFTER SHE FINISHES DINNER. WILL CONTINUE WITH PLAN OF CARE.
--- NOTE | 2016-11-02 08:46 | CN ---
PATIENT NAME:NILTON CHRISTINE MEDICAL RECORD: [id number] : 52 LOCATION:[id number] ADMIT DATE: 10/13/16 ACCOUNT: [id number] CONSULTING PHYSICIAN: CORY SIDHU MD REFERRING PHYSICIAN: MURALI ESCALANTE MD DATE OF CONSULTATION: 10/19/2016 Cardiology Consultation DIAGNOSES: 1. Lower gastrointestinal bleed. 2. Coronary artery disease. 3. Previous percutaneous transluminal coronary angioplasty stent greater than 1 year ago. 4. Hypertension. HISTORY OF PRESENT ILLNESS: Mrs. Christine presents with lower GI bleed. She is on aspirin and Plavix. Her last cardiac stent was over a year ago of the right coronary artery. She has had no recurrent anginal symptomatology. PHYSICAL EXAMINATION: GENERAL APPEARANCE: Well-nourished, well-developed, appears stated age. Level of distress, comfortable. PSYCHIATRIC: Mental status, alert, normal affect. Orientation, oriented to time, place and person. EYES: Lids and conjunctiva, noninjected. No discharge, no pallor. ENT: Lips, teeth, gums, normal dentition. Oropharynx, no cyanosis, no pallor. NECK: Carotid arteries, bilateral normal upstroke, no bruits, no thrills. JUGULAR VEINS: No jugular venous pressure or distention. CERVICAL LYMPH NODES: Nontender, nonenlarged. THYROID: Not enlarged. Nontender. No nodules. LUNGS: Respiratory effort, unlabored. CHEST: Normal curvature. No thoracic deformity. No chest wall tenderness. Percussion, resonant. Auscultation, clear. No wheezes, no rales, no rhonchi. CARDIOVASCULAR: Precordial exam, nondisplaced. No heaves or pericardial thrills. Rate and rhythm, regular. Heart sounds, normal S1, normal S2. No S3, no gallop, no rub. Systolic murmur, not heard. Diastolic murmur, not heard. EXTREMITIES: No cyanosis, no edema. Peripheral pulses, full and equal in all extremities, except as noted. No bruits appreciated. ABDOMEN: Soft, nondistended. Normal aorta. No bruit. Nontender. No masses. Liver, nontender, no hepatomegaly. Spleen, nontender, no splenomegaly. MUSCULOSKELETAL: No joint tenderness. No joint swelling. No erythema. NEUROLOGICAL: Normal gait, normal strength, normal tone. SKIN: Warm and dry. REVIEW OF SYSTEMS: The patient reports easy bruising but reports no swollen glands. The patient reports no fever, no night sweats, no significant weight gain, no significant weight loss. No significant exercise tolerance. The patient reports no dry eyes, no irritation, no vision change. Patient reports no difficulty hearing and no ear pain. Patient reports no frequent nose bleeds or nose and sinus problems. Patient reports on arm pain on exertion. No shortness of breath while lying down. No history of heart murmur. Patient reports no cough, no wheezing or coughing up blood. Patient reports no abdominal pain, no vomiting. Normal appetite. No diarrhea and not vomiting blood. No nausea and no constipation. Patient reports no incontinence. No CONSULT REPORT [id number] NILTON CHRISTINE difficulty urinating. No hematuria. No increased frequency. Patient reports no muscle aches. No weakness, no arthralgias, no back pain. No swelling of the extremities. Patient reports no abnormal mole, no jaundice, no rashes. Reports no loss of consciousness. No weakness and no numbness. No seizures, dizziness, or headaches. The patient reports no depression, no sleep disturbance, feeling safe in a relationship and no alcohol abuse. Patient reports on fatigue. Reports no runny nose or sinus pressure. No itching, no hives, and no frequent sneezing. OVERALL IMPRESSION: In light of the lower gastrointestinal bleed, we will discontinue aspirin and Plavix. We will see her back in the office as an outpatient. She does not need to restart these at this time. TRANSINT:[id number] Voice Confirmation ID: [id number] DOCUMENT ID: [id number] CORY SIDHU MD at 0846 CC: [id number] DICTATION DATE: 10/19/16 1051 SENIOR TELECOMMUNICATIONS SPECIALIST: 10/19/16 1314 DIS IN 10/19/16 [id number] [place] [address]
[2017-01-02] MEDS ORDERED: ZESTRIL10 MG PO (12:14)
== END 2016-10-19 18:30 | DRG 378 ==
LOC: D.MS 05:56 → D.ICU 05:56 → D.MS 18:23 → D.ICU 10-16 16:07 → D.MS 10-17 09:57
PROVIDERS: Emergency Medicine; Family Medicine; Internal Medicine Gastroenterology; ADMIT Family Medicine
PROC: 0DB98ZX Excision of Duodenum, Via Natural or Artificial Opening Endoscopic, Diagnostic (ICD-10-PCS; principal; 2016-10-18 14:00)
PROC: 0DBM8ZZ Excision of Descending Colon, Via Natural or Artificial Opening Endoscopic (ICD-10-PCS; principal; 2016-10-18 14:00)
PROC: 0DB68ZX Excision of Stomach, Via Natural or Artificial Opening Endoscopic, Diagnostic (ICD-10-PCS; principal; 2016-10-18 14:00)
PROC: 0DBN8ZZ Excision of Sigmoid Colon, Via Natural or Artificial Opening Endoscopic (ICD-10-PCS; principal; 2016-10-18 14:00)
DX: K57.91 Diverticulosis of intestine, part unspecified, without perforation or abscess with bleeding (principal); D62 Acute posthemorrhagic anemia; I10 Essential (primary) hypertension; I25.10 Atherosclerotic heart disease of native coronary artery without angina pectoris; E87.6 Hypokalemia; M17.11 Unilateral primary osteoarthritis, right knee; M81.0 Age-related osteoporosis without current pathological fracture; I95.9 Hypotension, unspecified; K44.9 Diaphragmatic hernia without obstruction or gangrene; K29.70 Gastritis, unspecified, without bleeding; D12.4 Benign neoplasm of descending colon; D12.5 Benign neoplasm of sigmoid colon

== ENCOUNTER 2016-10-19 15:08 | Inpatient (IN) | payer MEDICARE, OTHER ==
[~2016-10-19] VITALS: Ht 165.1 cm; Wt 74.8 kg
[~2016-10-19 15:08] MED LIST changes: +CARDURA4 MG PO; +ISOSORBIDE MONO30 M1 PO; +LIPITOR80 MG PO; +METOPROLOL TART50 MG PO; +NORVASC10 MG PO; +PROTONIX I40 MG/VIAL IV; +ROCEPHIN 1 GM/D51 G1 IV; +VOLTAREN100 GM TOPICAL; +ZITHROMAX 500M500 MG IV
--- NOTE | 2016-10-19 19:20 | NUR ---
SISTER SITTING IN ROOM WITH PATIENT, PT DENIES ANY NEEDS, DENIES ANY PAIN.
--- NOTE | 2016-10-19 21:30 | NUR ---
COMPLETING THE ADMISSION DOCUMENTATION, PT STATES SHE FEELS LIKE SHE WAS JUST DROPPED OFF, ANXIOUS, VERY DIFFICULT TO KEEP PATIENT ON TASK WITH ADMISSION HISTORY AND ASSESSMENT.
[2016-10-19 21:59] VITALS: BP 109/68
--- NOTE | 2016-10-20 00:11 | NUR ---
PT WORRIED ABOUT WHAT SHE IS SUPPOSED BE TO DOING, TRIED TO CALM AND REEXPLAINED REHAB. RESPIRATIONS REGULAR AND UNLABORED.
--- NOTE | 2016-10-20 06:21 | NUR ---
PT RESTING QUIETLY IN ROOM, VERY QUIET DURING THE NIGHT. DID REORIENT TO REHAB PROCESS PT WAS CONCERNED SHE WOULD HAVE TO GET SOMEPLACE AND DO SOMETHING. PT SEEMED TO UNDERSTAND THAT SHE WOULD NOT NEED TO GO ANY PLACE BY HERSELF.
--- NOTE | 2016-10-20 07:00 | NUR ---
Pt. was received at the beginning of this shift in bed awake and oriented x 3. Vital signs: Temp. 99.3, pulse 97, resp. 16, b/p 99/58, 02Sat. 98%. No voiced complaints of pain or discomfort. Her left arm is reserved. Call light is in reach. Will be monitoring her and assisting prn with adl's.
[2016-10-20 09:50] VITALS: Ht 165.1 cm; Wt 74.8 kg
[2016-10-20 10:01] VITALS: BP 116/56
--- NOTE | 2016-10-20 10:06 | NUR ---
PATIENT OBSERVED IN PHYSICAL THERAPY ROOM WORKING WITH OT.
--- NOTE | 2016-10-20 12:58 | NUR ---
PATIENT OBSERVED LYING IN BED. CHEST RISING AND FALLING. BREATHING EVEN AND UNLABORED. CALL LIGHT WITHIN REACH. BED IN LOWEST POSITION. SIDE RAILS UP TIMES TWO.
--- NOTE | 2016-10-20 17:46 | NUR ---
Pt. has had an uneventful day today. Pt's IV was resited into her left forearm. Antibiotics given per IV this afternoon. Pt. has been to therapy today and has participated well. Call light is in reach. Resting in bed watching tv. No complaints.
--- NOTE | 2016-10-20 19:30 | NUR ---
PT RESTING IN BED WATCHING TV. SISTER IN ROOM. PT DENIES NEEDS AT THIS TIME. BED LOW. CL IN REACH.
[2016-10-20 19:35] VITALS: BP 114/57
--- NOTE | 2016-10-20 21:50 | NUR ---
PT STATED SHE HAD A PAIN LEVEL 8/10. PT ORDERED AND GIVEN PRN TYLENOL AT THIS TIME WITH HS MEDS. PT DENIES FURTHUR NEEDS. WCTM. BED LOW. CL IN REACH.
--- NOTE | 2016-10-21 01:17 | NUR ---
PT RESTING, EYES CLOSED. BED LOW. CL IN REACH. WCTM.
--- NOTE | 2016-10-21 03:15 | NUR ---
PT RESTING, EYES CLOSED. BED LOW. CL IN REACH.
[2016-10-21 05:26] LABS: BASOPHILS 0.5 % (0.0-2.0); EOSINOPHILS 6.5 % (0-7); HEMATOCRIT 35.4 % (36.0-48.0); HEMOGLOBIN 11.5 g/dL (12-16); IMMATURE GRANULOCYTES 0.7 % (0-5); LYMPHOCYTES 17.7 % (15-50); MCH 29.1 pg (26.0-34.0); MCHC 32.5 g/dL (31.0-37.0); MCV 89.6 fL (80.0-100.0); MEAN PLATELET VOLUME 9.6 fL (7.4-10.4); MONOCYTES 9.1 % (2-11); NEUTROPHILS 65.5 % (40-80); PLATELET COUNT 321 10x3/uL (130-400); RBC 3.95 10x6/uL (4.00-5.40); WBC 8.4 10x3/uL (4.8-10.8)
--- NOTE | 2016-10-21 05:47 | NUR ---
PT STATED SHE WAS HAVING CHEST PAIN AND POINTED TO UPPER ANTERIOR RIBCAGE. PT PLACED ON TELEMETRY. AM MEDS GIVEN WITHOUT DIFFICULTY. WCTM. BED LOW. CL IN REACH.
[2016-10-21 06:23] LABS: ANION GAP 15.9 mmol/L (8-16); CARBON DIOXIDE 25.4 mmol/L (21.0-32.0); POTASSIUM - SERUM 4.3 mmol/L (3.5-5.1)
--- NOTE | 2016-10-21 06:42 | NUR ---
PT RESTING, EYES CLOSED. BED LOW. CL IN REACH. P
--- NOTE | 2016-10-21 08:18 | NUR ---
PATIENT OBSERVED SITTING UPRIGHT IN BED EATING BREAKFAST. PATIENT IS ALERT AND ORIENTED TIMES FOUR. BREATHING IS UNLABORED AND EVEN. CALL LIGHT AND WALKER IS WITHIN REACH.
[2016-10-21 08:23] VITALS: BP 109/60
--- NOTE | 2016-10-21 12:14 | NUR ---
PT. EATING LUNCH. DENIES ANY COMPLAINTS AT THIS TIME. CL AND WALKER WITHIN REACH. BED IN LOWEST POSITION.
--- NOTE | 2016-10-21 16:00 | NUR ---
IV IN LEFT LOWER FOREARM PATENT. ANTIBIOTICS RUNNING.
--- NOTE | 2016-10-21 17:00 | NUR ---
WATCHING TV.DENIES NEEDS.CL IN REACH.
[2016-10-21 19:20] VITALS: BP 110/57
--- NOTE | 2016-10-21 19:25 | NUR ---
PT IS RESTING IN BED WATCHING TV WITH HER SISTER. ALERT AND ORIENTED X 4. DENIES ACUTE PAIN OR DISCOMFORT. PT IS VERY TALKATIVE. VSS. LFA SALINE LOCK NOTED. SR'S ARE UP X 2 IN BED. CALL LIGHT AND BEDSIDE TABLE ARE WITHIN EASY REACH.
--- NOTE | 2016-10-21 21:45 | NUR ---
PT. IN BED WITH HOB UP FOR COMFORT AND LLE ELEVATED ON PILLOW. PT. WATCHING TV AND VISITING WITH FAMILY. PT. DENIES ANY NEEDS AT THIS TIME AND HAS HER CALL LIGHT WITHIN REACH. I.V. SITE IS TO HER LEFT HAND AT BASE OF THUMB. PT. STATES THIS IS THE 5TH I.V. SITE THAT SHE HAS HAD THIS HOSPITAL STAY SO THIS IS BEING VERY CAREFUL WITH IT.
--- NOTE | 2016-10-22 00:08 | NUR ---
PT RESTING IN BED WITH EYES CLOSED. UP TO BATHROOM PRN.
--- NOTE | 2016-10-22 03:01 | NUR ---
PT RESTING QUIETLY IN BED WITH EYES CLOSED.
--- NOTE | 2016-10-22 06:01 | NUR ---
RESTING IN BED WITH EYES CLOSED. PT UP AD GABRIELA TO BATHROOM PRN.
[2016-10-22 06:22] LABS: BASOPHILS 0.5 % (0.0-2.0); EOSINOPHILS 6.1 % (0-7); HEMATOCRIT 38.3 % (36.0-48.0); IMMATURE GRANULOCYTES 0.8 % (0-5); LYMPHOCYTES 16.4 % (15-50); MCH 28.8 pg (26.0-34.0); MCHC 31.3 g/dL (31.0-37.0); MEAN PLATELET VOLUME 9.5 fL (7.4-10.4); NEUTROPHILS 68.2 % (40-80); PLATELET COUNT 342 10x3/uL (130-400); RBC 4.17 10x6/uL (4.00-5.40); WBC 9.8 10x3/uL (4.8-10.8)
[2016-10-22 06:26] LABS: MCV 91.8 fL (80.0-100.0)
[2016-10-22 06:43] LABS: ANION GAP 11.1 mmol/L (8-16); CALCIUM 8.8 mg/dL (8.5-10.1); CARBON DIOXIDE 28.4 mmol/L (21.0-32.0); POTASSIUM - SERUM 4.5 mmol/L (3.5-5.1)
[2016-10-22 10:22] VITALS: BP 99/60
--- NOTE | 2016-10-22 15:35 | NUR ---
RESTING QUIETLY IN BED. DENIES NEEDS OR C/O. CALL LIGHT IN REACH
--- NOTE | 2016-10-22 17:44 | NUR ---
SITTING UP IN W/C EATING SUPPER. DENIES NEEDS
--- NOTE | 2016-10-22 19:32 | NUR ---
PT. IN BED WITH HOB UP FOR COMFORT AND HAS HER RLE ELEVATED ON PILLOW. PT. DENIES ANY PAIN AND HAS NO NEEDS AT THIS TIME. CALL LIGHT WITHIN REACH.
[2016-10-22 19:41] VITALS: BP 117/61
--- NOTE | 2016-10-22 20:01 | NUR ---
RESUMED CARE OF PT, PT WATCHING TV, ALERT & ORIENTED X4, UP AB GABRIELA, DENIES ANY NEEDS AT THIS TIME, CALL LIGHT IN REACH, WILL CONTINUE TO MONITOR
--- NOTE | 2016-10-22 23:03 | NUR ---
SLEEPING, CALL LIGHT IN REACH, WILL CONTINUE TO MONITOR
--- NOTE | 2016-10-23 01:00 | NUR ---
RECEIVED REPORT FROM LISA GALARZA LPN
--- NOTE | 2016-10-23 02:13 | NUR ---
PT RESTING WITH EYES CLOSED, RESP QUIET, NO DISTRESS NOTED, LEFT UNDISTURBED AT THIS TIME
--- NOTE | 2016-10-23 04:21 | NUR ---
PT RESTING WITH EYES CLOSED, RESP QUIET, NO DISTRESS NOTED, LEFT UNDISTURBED AT THIS TIME
--- NOTE | 2016-10-23 06:07 | NUR ---
PT RESTING WITH EYES CLOSED, AROUSES TO SOFT VERBAL STIMULATION, ADM 0600 MED PO PER MD ORDERS, SEE EMAR, PT DENIES NEEDS OR PAIN AT THIS TIME
--- NOTE | 2016-10-23 07:00 | NUR ---
SHIFT REPORT TO DAY SHIFT
--- NOTE | 2016-10-23 07:00 | NUR ---
Pt. was received in bed at the beginning of this shift. Awake and oriented x 3. No voiced complaints. She is speaking about going home this weekend perhaps. Vital signs: Temp. 98.3, pulse 91, resp. 14, b/p 110/56, 02Sat. 95%. Call light is in reach. Stable condition observed.
--- NOTE | 2016-10-23 12:00 | NUR ---
Pt. has had an uneventful day. She went to therapy and participated well. Will continue to observe and assist as needed. Call light in reach.
[2016-10-23 18:23] VITALS: BP 110/56
[2016-10-23 19:10] VITALS: BP 85/52
--- NOTE | 2016-10-23 19:50 | NUR ---
PT. SITTING UP IN W/C AND VISITING WITH FAMILY. PT. WANTS HER PAIN PILL WITH HER NIGHT TIME MEDS TONIGHT. ASSESSMENT COMPLETED. PT. WOULD ALSO LIKE HER SHOWER TONIGHT AND SHE HAS ALREADY BEEN REPORTED AND SHE WILL GET IT DONE TONIGHT. CALL LIGHT WITHIN REACH.
--- NOTE | 2016-10-23 22:10 | NUR ---
PT. IN BED WITH RLE ELEVATED ON PILLOW. PT. STATES THAT THE TYLENOL DID DECREASE HER PAIN. PT. CONTINUES TO VISIT WITH HER SISTER AND WAS INFORMED WHY THE TV WAS OUT. PT. HAS NO NEEDS AND HAS HER CALL LIGHT WITHIN REACH.
--- NOTE | 2016-10-23 23:47 | NUR ---
PT. IN BED WITH HOB UP AND LOOKING AT HER CELL PHONE SINCE THE TV'S ARE OUT DUE TO THE WEATHER. PT. DENIES ANY NEEDS AND HAS HER CALL LIGHT WITHIN REACH. PT. KEEPS HER RIGHT KNEE ELEVATED ON A PILLOW AT ALL TIMES FOR COMFORT.
--- NOTE | 2016-10-24 00:03 | NUR ---
PT. IN BED WITH HOB UP FOR COMFORT LYING ON HER LEFT SIDE WITH EYES CLOSED AND RESP. EVEN. CALL LIGHT IS WITHIN REACH.
--- NOTE | 2016-10-24 03:07 | NUR ---
PT. IN BED LYING ON HER RIGHT SIDE WITH EYES CLOSED AND RESP. EVEN. CALL LIGHT IS WITHIN REACH.
--- NOTE | 2016-10-24 05:38 | NUR ---
PT. IN BED LYING ON HER RIGHT SIDE WITH EYES CLOSED AND RESP. EVEN. CALL LIGHT WITHIN REACH.
[2016-10-24 05:56] LABS: BASOPHILS 0.6 % (0.0-2.0); EOSINOPHILS 5.9 % (0-7); HEMATOCRIT 37.5 % (36.0-48.0); HEMOGLOBIN 11.9 g/dL (12-16); IMMATURE GRANULOCYTES 0.8 % (0-5); MCH 29.1 pg (26.0-34.0); MCHC 31.7 g/dL (31.0-37.0); MCV 91.7 fL (80.0-100.0); MEAN PLATELET VOLUME 9.7 fL (7.4-10.4); MONOCYTES 10.1 % (2-11); NEUTROPHILS 61.6 % (40-80); PLATELET COUNT 312 10x3/uL (130-400); RBC 4.09 10x6/uL (4.00-5.40)
[2016-10-24 06:06] LABS: ANION GAP 15.4 mmol/L (8-16); CARBON DIOXIDE 25.5 mmol/L (21.0-32.0); CREATININE - SERUM 1.1 mg/dL (0.6-1.3); POTASSIUM - SERUM 4.9 mmol/L (3.5-5.1)
[2016-10-24 08:29] VITALS: BP 111/60
--- NOTE | 2016-10-24 09:44 | NUR ---
UP IN WHEELCHAIR IN THERAPY GYM AT THIS TIME. NO ACUATE DISTRESS NOTED. NEGAR ANY NEEDS. WILL CONTINUE PLAN FO CARE.
--- NOTE | 2016-10-24 12:10 | NUR ---
UP IN BED EATING LUNCH AT THIS TIME. DENIES ANY NEEDS. WILL CONTINUE PLAN FO CARE.
--- NOTE | 2016-10-24 14:36 | NUR ---
LYING IN BED WATCHING TV AT THIS TIME. LESLIE ANY NEEDS. WILL CONTINUE PLAN OF CARE.
--- NOTE | 2016-10-24 16:45 | NUR ---
CARE TEAM MEETING: TENATIVE DISCHARGE DATE IS 10/26/16. SHE WILL DISCHARGE HOME WITH HER SISTER. PATIENT HAS WALKER, SHOWER CHAIR, WHEELCHAIR. SHE USES [facility] . PCP IS DR. ESCALANTE. WILL CONTINUE TO FOLLOW WITH PATIENT UNTIL DISCHARGED
--- NOTE | 2016-10-24 17:31 | NUR ---
UP IN BED EATING SUPPER AT THIS TIME. DENIES ANY NEEDS. WILL CONTINUE PLAN FO CARE.
--- NOTE | 2016-10-24 18:51 | NUR ---
UP IN BED WATCHING TV AT THIS TIME. DENEIS ANY NEEDS. NO ACUTE DISTRESS NOTED. WILL CONTINUE PLAN OF CARE.
--- NOTE | 2016-10-24 19:15 | NUR ---
PT IN BED WITH EYES CLOSED AND CHEST RISING. RESPIRATIONS EVEN AND UNLABORED. NO COMPLAINTS OR CONCERNS NOTED AT THIS TIME. WATER AND CALL LIGHT IN REACH.
[2016-10-24 23:58] VITALS: BP 105/51
--- NOTE | 2016-10-25 01:10 | NUR ---
PT IN BED WITH EYES CLOSED AND CHEST RISING. RESPIRATIONS EVEN AND UNLABORED. NO CONCERNS NOTED AT THIS TIME. WATER AND CALL LIGHT IN REACH.
--- NOTE | 2016-10-25 05:23 | NUR ---
PT IN BED WITH EYES OPEN. COMPLAINS OF CONTINOUS PAIN TO RIGHT KNEE. PRN PAIN MEDS GIVEN EARLIER. STATES THAT IT HURTS MOST OF THE TIME. IF KEPT STILL PAIN IS RELEIVED. WATER AND CALL LIGHT IN REACH.
--- NOTE | 2016-10-25 07:00 | NUR ---
Pt. was received in bed awake and oriented x 3 at the beginning of this shift. No signs of any discomfort or distress. No voiced complaints. Vital signs: Temp. 97.7, pulse 88, resp. 14, b/p 113/61, 02Sat. 96%. Will be monitoring her throughout the day.
[2016-10-25 08:01] VITALS: BP 113/61
--- NOTE | 2016-10-25 10:08 | NUR ---
PATIENT DISCHARGING HOME ON 10/26/16. [facility] WILL PROVIDE NURSING, PT, OT.PATIENT HAS WALKER, SHOWER CHAIR, AND WHEELCHAIR. APPOINTMENTS: DR. ESCALANTE 11/01/16 @ 2:15, DR. SIDHU 10/30/16 @ 1:15, DR. BRISENO 11/06/16 @ 9:30. PATIENT EDUCATED ON SIGNES AND SYMPTOMS OF ANEMIA AND GI BLEED. EDUCATION SHEETS GIVEN TO PATIENT FOR HOME USE. PATIENT CHOICE FORM FOR HOME HEALTH AND [facility] FORM SIGNED, EXPLAINED AND FILED IN CHART. WILL CONTNIUE TO FOLLOW WITH PATIENT UNTIL DISCHARGED
--- NOTE | 2016-10-25 12:00 | NUR ---
Pt. has had an uneventful day. No changes to report. Stable condition observed. Pt. went to therapy this morning and participated well. Will continue to observe. Call light is in reach.
[2016-10-25 20:45] VITALS: BP 113/56
--- NOTE | 2016-10-25 21:21 | NUR ---
PT TOOK HS MEDS WITHOUT DIFFICULYT. PT FAMILY AT BEDSIDE. PT DENIES NEEDS AT THIS TIME. BED LOW. CL INR EACH.
--- NOTE | 2016-10-25 23:47 | NUR ---
PT RESTING IN BED WATCHING TV, DENIES NEEDS AT THIS TIME. BED LOW. CL IN REACH.
--- NOTE | 2016-10-26 06:04 | NUR ---
PT TOOK AM MEDS WITHOUT DIFFICULTY. PT DENIES NEEDS AT THIS TIME. BED LOW. CLIN REACH.
--- NOTE | 2016-10-26 07:50 | NUR ---
SITTING UP IN BED EATING BREAKFAST.
[2016-10-26 07:54] VITALS: BP 123/64
--- NOTE | 2016-10-26 10:44 | RHP ---
PATIENT: NILTON GAVIRIA MEDICAL RECORD: [id number] ACCOUNT: [id number] LOCATION:[id number] : 52 ADMISSION DATE: 10/19/16 REHABILITATION HISTORY AND PHYSICAL EXAMINATION POST ADMISSION PHYSICIAN EXAMINATION DATE OF ADMISSION TO REHAB: 10/19/2016 ADMITTING DIAGNOSIS: Acute GI bleed and acute blood loss anemia. Follow up for hypotension. HISTORY OF PRESENT ILLNESS: The patient is a 66-year-old patient, who is admitted with GI bleed, blood loss anemia, hypotension and reports that she had 3 episodes of ____ blood with subsequent fall related to dizziness. EMS was called and the patient was taken to [facility] ER, but transferred to [place] after being given blood and placed in the ER. She was also hypotensive. She has complained of knee pain after a fall, was unable to bear weight. She was tachycardic and had a temperature up to 101.7. GI and ortho were consulted. X-ray of the right knee showed a small suprapatellar effusion. Knee CT showed knee effusion, osteopenia and severe degenerative changes. A colonoscopy on October 18 showed GI bleed secondary to colonic diverticular bleed, the effects of Plavix. Prior to admit, she was markedly independent with ADLs and mobility. Currently, she is [id number] assist with ADLs and mobility secondary to knee pain and inability to fully extend the right knee. She lives alone and has stairs to go into her house. She cannot go home at this time, definitely needs inpatient rehab to get back to her prior level of functioning. COMORBIDITIES: Include a fever, tachycardia, fatigue, weakness, chronic hypertension, coronary artery disease, hypotension, severe osteoarthritis, knee pain, leukocytosis and anemia. PAST MEDICAL HISTORY: Significant for hypertension and coronary artery disease. PAST SURGICAL HISTORY: Includes a skin lesion removal, cardiac stent. She has had surgery on her right knee and left arm. ALLERGIES: CODEINE. CURRENT MEDICATIONS: Include Protonix 40 mg IV daily, Imdur 30 mg daily, Cardura 2 mg daily, Rocephin 1 g q.24 hours, Zithromax 500 mg IV daily, amlodipine 10 mg daily, polyethylene glycol 17 grams in 8 of water daily, lisinopril 20 mg b.i.d., Voltaren to apply q.i.d. and Lipitor 40 mg at bedtime. HABITS: No current alcohol or tobacco use. FAMILY HISTORY: Noncontributory. SOCIAL HISTORY: The patient hopes to return back home and get back to her prior level of functioning. REVIEW OF SYSTEMS: GENERAL: Does complain of weakness and fatigue. HEENT: Denies cold, cough or congestion. CARDIOVASCULAR: Denies chest pain. HISTORY AND PHYSICAL [id number] NILTON GAVIRIA PHYSICAL EXAMINATION: VITAL SIGNS: Stable, afebrile. GENERAL: Elderly female in no acute distress, alert upon exam. HEENT: Normocephalic, atraumatic. Mucosa moist. NECK: Supple. No lymphadenopathy. LUNGS: Clear at this time. HEART: Regular rate and rhythm. ABDOMEN: Benign. EXTREMITIES: No clubbing, cyanosis or edema. NEUROLOGIC: Intact. LABORATORY DATA: Her white count is 9.5, H&H of 11 and 35, and platelet count is 272. Chemistry showed a sodium 142, potassium 4.0, BUN and creatinine of 7 and 1.0, and blood sugar is noted be 116. All the LFTs were all within normal limits. ASSESSMENT: A 66-year-old female patient admitted to rehab with a working diagnosis of gastrointestinal bleed, complicated by blood loss anemia. The patient has potential to make improvement. We instituted the following multidisciplinary therapies including to, but not limited to physical, occupational, respiratory, speech, nutritional services, prosthetics and orthotics. Given her complex condition and risk for more complications, rehabilitation services cannot be provided at a low level of care such as a residential facility. PLAN: 1. Admit to [facility] rehab for intensive inpatient therapy to include the following disciplines: A. Physical therapy to improve gait, all transfer skills and bed mobility to a modified independent level. B. Occupational therapy to improve activities daily living to a modified independent level. C. Case management to assist with discharge planning and placement options. D. Nutrition to assist with nutritional needs. E. Rehabilitation nursing to assist in monitoring the patient's underlying conditions and to assist with any type of bowel or bladder management. 2. The patient's current medications and medical care will be continued. 3. The patient will be placed on standard fall precautions. 4. We will closely watch blood counts during her stay and monitor H&H. 5. We will go ahead and discuss this patient during care team staff meeting this week. TRANSINT:[id number] Voice Confirmation ID: [id number] DOCUMENT ID: [id number] HISTORY AND PHYSICAL [id number] NILTON GAVIRIA SCOTT MD at 1044 CC: [id number] DICTATION DATE: 10/20/16 1346 INTERNAL REVENUE SERVICE AGENT: 10/21/16 0033 ADM IN [id number] [place] [address]
--- NOTE | 2016-10-26 11:25 | NUR ---
SITTING ON SIDE OF THE BED TALKING TO VISITORS. NO NEEDS NOTED.
--- NOTE | 2016-10-26 12:15 | NUR ---
DISCHARGE INSTRUCTIONS EXPLAINED AND GIVEN TO PT.
--- NOTE | 2016-10-26 13:12 | NUR ---
D/C HOME VIA WHEELCHAIR. CONDITION STABLE.
[2017-01-02] MEDS ORDERED: ZESTRIL10 MG PO (12:14)
== END 2016-10-26 13:10 | disposition home health service (06) | DRG 378 ==
LOC: D.REHAB 15:08
PROVIDERS: ADMIT Emergency Medicine
DX: K92.2 Gastrointestinal hemorrhage, unspecified (principal); D62 Acute posthemorrhagic anemia; I95.9 Hypotension, unspecified; R50.9 Fever, unspecified; E87.6 Hypokalemia; R00.0 Tachycardia, unspecified; R53.83 Other fatigue; R53.1 Weakness; I10 Essential (primary) hypertension; M19.90 Unspecified osteoarthritis, unspecified site; M25.561 Pain in right knee; D72.829 Elevated white blood cell count, unspecified; I25.10 Atherosclerotic heart disease of native coronary artery without angina pectoris

== ENCOUNTER 2016-11-05 07:30 | Outpatient (CLI) | payer MEDICARE, OTHER ==
[~2016-11-05] VITALS: Ht 165.1 cm; Wt 76.4 kg
--- NOTE | ~2016-11-05 | HEMODYNAMI ---
PATIENT:NILTON GAVIRIA MEDICAL RECORD: [id number] : 52 LOCATION:DJOSE ADMISSION DATE: 11/05/16 Generatedon:11/06/20167:16 Patient name: NILTON GAVIRIA Patient #: [id number] SS N: : 1950 Date of study: 11/05/2016 Page: Of Hemodynamic Procedure Report Patient Data Patient Demographics Procedure consent was obtained First Name: NILTON Gender: Female Last Name: KHADRA : 1950 [facility] Initial: A Age: 66 year(s) Patient #: [id number] Race: Unknown Additional ID: [id number] Contact details Address: [address] [place] [address] State: [place] City: [facility] Zip code: [address] Past Medical History Allergies Allergen Reaction Date Comments Reported Codeine 11/05/2016 Admission Admission Data Admission Date: 11/05/2016 Admission Time: 7:30 Height (in.): 65 Height (cm.): 165.1 Procedure Procedure Types Cath Procedure Peripheral Cath Diagnostic Procedure Cath Peripheral Nstcj-Xhavvzn-Pbc-Off Peripheral vascular Intervention Stent Stent Iliac w/plasty Initial Stent w/plasty-Iliac Additional Procedure Description Procedure Date Procedure Date: 11/05/2016 Procedure Start Time: 10:00 Procedure End Time: 10:31 Procedure Staff Name Function Leo Yee RT Monitor Erasto Liz RT Scrub Ruben Zamudio MD Performing Physician Pamela Mondragon RN Nurse Procedure Data Cath Procedure Fluoroscopy Diagnostic fluoroscopy Total fluoroscopy Time: 4.9 time: 4.9 min min Diagnostic fluoroscopy Total fluoroscopy dose: 318 dose: 318 mGy mGy Contrast Material Contrast Material Type Amount (ml) Isovue 300 121 Entry Location Entry Primary Successful Side Size (Fr) Upsize 1 Upsize Entry Closu re Successful Closure Location (Fr) 2 (Fr) Remarks Devic e Remarks Femoral Left 5 Fr 6 Fr 6 Fr Vasca de artery Mid-Length Short Closu re System Femoral Right 6 Fr 6 Fr Short Vasca de artery Mid-Length Closu re System Estimated blood loss: 10 ml Diagnostic catheters Device Type Used For End Catheter Placement Cordis Tempo 5Fr UF Procedure catheter Procedure Complications No complications Procedure Medications Medication Administration Route Dosage Oxygen NC 2 l/min Heparin Flush Bag added to field 2 bags (1000units/500ml NS) Lidocaine 2% added to field 20 Versed I.V. 1 mg Fentanyl I.V. 50 mcg Heparin Bolus I.V. 4000 units Integrilin (Bolus I.V. 6.8 ml 2mg/ml) Versed I.V. 1 mg Fentanyl I.V. 50 mcg Versed I.V. 1 mg Fentanyl I.V. 50 mcg Versed I.V. 1 mg Fentanyl I.V. 50 mcg Plavix P.O. 600 mg Hemodynamics Rest Heart Rate: 97 (bpm) Snapshots Pre Cath Intra NCS Post Cath Vital Signs Time Heart Resp SPO2 etCO2 LV5rhqw NIBP (mmHg) Rhythm Pain Sedation Rate (ipm) (%) (mmHg) (mmHg) Status Level (bpm) 9:24:48 92 16 96 0 0 Measuring NSR 0 (11) 10(A) , No pain 9:24:59 91 16 96 0 0 116/72(97) NSR 0 (11) 10(A) , No pain 9:29:02 94 23 99 0 0 115/75(89) NSR 0 (11) 10(A) , No pain 9:33:12 98 17 95 0 0 107/64(84) NSR 0 (11) 10(A) , No pain 9:37:20 98 17 95 0 0 101/59(86) NSR 0 (11) 10(A) , No pain 9:41:26 98 18 96 0 0 110/60(83) NSR 0 (11) 10(A) , No pain 9:45:34 99 19 97 0 0 97/61(80) NSR 0 (11) 10(A) , No pain 9:49:40 98 19 97 0 0 100/55(82) NSR 0 (11) 10(A) , No pain 9:53:45 97 17 98 0 0 102/57(85) NSR 0 (11) 10(A) , No pain 9:57:51 96 15 96 0 0 101/54(76) NSR 0 (11) 10(A) , No pain 10:01:57 100 15 97 0 0 103/60(81) NSR 0 (11) 10(A) , No pain 10:06:02 100 11 99 0 0 105/57(72) NSR 0 (11) 9(A) , No pain 10:10:10 100 17 95 0 0 97/59(82) NSR 0 (11) 9(A) , No pain 10:14:14 103 15 98 0 0 94/60(70) NSR 0 (11) 9(A) , No pain 10:18:20 99 15 97 0 0 92/52(74) NSR 0 (11) 9(A) , No pain 10:22:22 100 18 99 0 0 102/62(79) NSR 0 (11) 9(A) , No pain 10:26:27 98 23 99 0 0 110/62(88) NSR 0 (11) 10(A) , No pain 10:30:33 95 21 100 0 0 113/69(101) NSR 0 (11) 10(A) , No pain Medications Time Medication Route Dose Verified Delivered Reason Notes Effectiveness by by 9:24:44 Oxygen NC 2 Ruben Pamela Per physician l/min Lizz Mondragon RN 9:27:59 Heparin Flush added 2 Ruben Ruben used for Bag to bags Lizz Zamudio MD procedure (1000units/500ml field NS) 9:28:09 Lidocaine 2% added 20ml Ruben Ruben used for to vial Lizz Zamudio MD procedure field 9:58:09 Versed I.V. 1 mg Ruben Pamela for sedation Lizz Mondragon RN 9:58:16 Fentanyl I.V. 50 Ruben Pamela for sedation mcg Lizz Mondragon RN 10:00:31 Versed I.V. 1 mg Ruben Pamela for sedation Lizz Mondragon RN 10:00:44 Fentanyl I.V. 50 Ruben Pamela for sedation mcg Lizz Mondragon RN 10:03:05 Versed I.V. 1 mg Ruben Pamela for sedation Lizz Mondragon RN 10:03:14 Fentanyl I.V. 50 Ruben Pamela for sedation mcg Lizz Mondragon RN 10:05:18 Versed I.V. 1 mg Ruben Santiago for sedation Lizz Mondragon RN 10:05:23 Fentanyl I.V. 50 Ruben Santiago for sedation mcg Lizz Mondragon RN 10:08:26 Heparin Bolus I.V. 4000 Ruben Santiago for dose units Lizz Mondragon RN anticoagulation verified with dr zamudio 10:11:37 Integrilin I.V. 6.8 Ruben Santiago for 6.8ml (Bolus 2mg/ml) ml Lizz Mondragon RN antiplatelet administred therapy from 10 ml vial. 3.2ml wasted 10:25:33 Plavix P.O. 600 Ruben Santiago for mg Lizz Mondragon RN antiplatelet therapy Procedure Log Time Note 9:01:56 ACC Patient presents with Non-STEMI CCS Anginal Class 2--Slight limitation of ordinary activity. 9:01:58 Diagnostic Cath status Elective 9:02:00 Leo SINHA(R) sent for patient. Start room use. 9:02:18 Time tracking: Regular hours 9:02:23 Plan of Care:Hemodynamics will remain stable., Cardiac rhythm will remain stable., Comfort level will be maintained., Respiratory function will remain adequate., Patient/ family verbilizes understanding of procedure., Procedure tolerated without complication., Recovers from procedure without complications.. 9:07:18 Patient allergic to Codeine 9:07:30 Patient Height : 65 inches 9:19:04 Patient received from Pre/Post Procedure Room to CCL 1 Alert and oriented. Tansferred to table in Supine position. 9:19:06 Correct patient and procedure confirmed by team. 9:19:06 Warm blankets applied, and tom hugger turned on for patient comfort. 9:19:07 Signed procedure consent form obtained from patient. 9:19:12 ECG and BP/O2 sat monitors applied to patient. 9:22:59 Vital chart was started 9:24:44 Oxygen 2 l/min NC was given by Pamela Mondragon RN; Per physician; 9:27:59 Heparin Flush Bag (1000units/500ml NS) 2 bags added to field was given by Ruben Zamudio MD; used for procedure; 9:28:09 Lidocaine 2% 20ml vial added to field was given by Ruben Zamudio MD; used for procedure; 9:30:08 Physician paged 9:32:47 Baseline sample Acquired. 9:32:50 Rhythm: sinus rhythm 9:32:51 Full Disclosure recording started 9:32:59 H&P Date Dictated: 10/30/2016 Within 30 days and on chart., H&P Addendum completed by physician on day of procedure. (MUST COMPLETE FOR ALL OUTPATIENTS). 9:33:01 Pre-op teaching completed and patient verbalized understanding. 9:33:01 Pre-procedure instructions explained to patient. 9:33:03 Family in waiting room. 9:33:04 Patient NPO since Midnight. 9:33:08 Is the patient allergic to Iodine/contrast media? No. 9:33:16 Is patient on blood thinner?No 9:33:20 ACC The patient was administered the following blood thiners within the last 24 hours: None 9:33:22 Patient diabetic? No. 9:33:24 Patient not . Patient is over age 55. 9:33:30 Previous problem with sedation/anesthesia? No ? 9:33:33 Snore? Yes 9:33:34 Sleep apnea? Yes 9:33:35 Opens mouth fully? Yes 9:33:35 Deviated septum? No 9:33:36 Sticks out tongue? Yes 9:33:38 Airway obstruction? No ? 9:33:39 Dentures? No ? 9:33:45 Pre procedure: right dorsailis pedis pulse 1+ Palpable, but thready & weak; easily obliterated 9:33:49 Pre procedure: left dorsailis pedis pulse 1+ Palpable, but thready & weak; easily obliterated 9:33:56 Patient pain scale 0/10 ?. 9:34:05 IV patent on arrival in right forearm with 0.9% NaCl at KVO. 9:34:06 Lab results completed and on chart. 9:34:10 Bilateral groins area was prepped with chlora-prep and draped in sterile fashion 9:34:11 Alarms reviewed by R. N. 9:34:12 Sharps counted by scrub and verified by R.N. 9:34:19 Use device set Femoral Dx 9:34:21 Tegaderm 4 x 4 opened to sterile field. 9:34:22 Acist Manifold opened to sterile field. 9:34:22 Acist Hand Control opened to sterile field. 9:34:24 Medline Cath Pack opened to sterile field. 9:34:24 Bag Decanter opened to sterile field. 9:34:24 Acist Syringe opened to sterile field. 9:34:25 St Kiko 260cm J .035 wire opened to sterile field. 9:34:25 Terumo 5Fr Connelly Sheath opened to sterile field. 9:44:19 Zero performed for pressure channel P1 9:56:21 --------ALL STOP TIME OUT------ 9:56:22 Final Timeout: patient, procedure, and site verified with staff and physician. All members of the team are in agreement. 9:57:49 Bilateral groins site verified by team. 9:57:52 Physical assessment completed. ASA score P 2 - A patient with mild systemic disease as per Ruben Zamudio MD. 9:57:55 Sedation plan: IV Moderate Sedation Versed, Fentanyl 9:58:09 Versed 1 mg I.V. was given by Pamela Mondragon RN; for sedation; 9:58:16 Fentanyl 50 mcg I.V. was given by Pamela Mondragon RN; for sedation; 10:00:25 Procedure started. 10:00:31 Versed 1 mg I.V. was given by Pamela Mondragon RN; for sedation; 10:00:36 Local anesthetic to left femerol artery with Lidocaine 2% by Ruben Zamudio MD.INITIAL ACCESS ONLY 10:00:44 Fentanyl 50 mcg I.V. was given by Pamela Mondragon RN; for sedation; 10:01:48 A 5 Fr sheath was inserted into the Left Femoral artery 10:02:02 A AgenTec 5Fr UF catheter was advanced over the wire and used for Procedure. 10:02:40 Abdominal Aortagram was performed. 10:02:44 Right leg runoff performed. 10:02:48 Left leg runoff performed. 10:03:05 Versed 1 mg I.V. was given by Pamela Mondragon RN; for sedation; 10:03:14 Fentanyl 50 mcg I.V. was given by Pamela Mondragon RN; for sedation; 10:04:44 Catheter removed. 10:04:54 Sheath upsized to a 6 Fr Mid-Length. 10:05:18 Versed 1 mg I.V. was given by Pamela Mondragon RN; for sedation; 10:05:23 Fentanyl 50 mcg I.V. was given by Pamela Mondragon RN; for sedation; 10:05:30 Cordis 6Fr Brite Tip 35cm Sheath opened to sterile field. 10:05:30 Cordis 6Fr Brite Tip 35cm Sheath opened to sterile field. 10:05:30 [employer] BasixCompak Inflation Kit opened to sterile field. 10:05:31 Terumo ANGLED SS 260CM glide wire opened to sterile field. 10:05:38 Terumo TORQUE DEVICE PLASTIC .038 opened to sterile field. 10:06:30 Local anesthetic to right femoral artery with Lidocaine 2% by Ruben Zamudio MD.ADDITIONAL ACCESS 10:07:17 Terumo 6Fr Connelly Sheath opened to sterile field. 10:07:54 A 6 Fr Mid-Length sheath was inserted into the Right Femoral artery 10:08:26 Heparin Bolus 4000 units I.V. was given by Pamela Mondragon RN; for anticoagulation; dose verified with dr zamudio 10:10:45 J wire advanced through left groin sheath. 10:11:35 Glidewire advanced through right groin sheath. 10:11:37 Integrilin (Bolus 2mg/ml) 6.8 ml I.V. was given by Pamela Mondragon RN; for antiplatelet therapy; 6.8ml administred from 10 ml vial. 3.2ml wasted 10:13:05 [employer] BasixCompak Inflation Kit opened to sterile field. 10:14:03 Inflation Number: 1 A Cordis Linda 7 x 39 x 135 stent was prepped and advanced across the Ostial Common Iliac, Right. The stent was deployed at 11 TRACEE for 0:10 (min:sec). 10:14:03 Inflation Number: 1 A [employer] Express LD OTW 8 X 37 X 75 stent was prepped and advanced across the Ostial Common Iliac, Left. The stent was deployed at 11 TRACEE for 0:10 (min:sec). 10:16:52 Stent catheter was removed intact over wire. 10:16:52 Stent catheter was removed intact over wire. 10:21:21 Wire removed. 10:21:21 Wire removed. 10:21:38 Vascade 6/7 Fr Closure Device opened to sterile field. 10:21:39 Vascade 6/7 Fr Closure Device opened to sterile field. 10::54 Sheath removed intact; hemostasis achieved with Vascade Closure System to the Left Femoral artery. 10::54 Sheath upsized to a 6 Fr Short. 10:22:02 Sheath removed intact; hemostasis achieved with Vascade Closure System to the Right Femoral artery. 10:22:02 Sheath upsized to a 6 Fr Short. 10:22:10 Procedure ended.(Physican Out) 10::38 Fluoroscopy time 04.90 minutes. 10:24:42 Fluoroscopy dose: 318 mGy 10:24:42 Flurop Dose total: 318 10:24:46 Contrast amount:Isovue 300 121ml. 10:24:58 Sharps counted by scrub and verified by R.N. 10:25:01 Insertion/operative site no bleeding no hematoma. 10:25:05 Post-op/insertion site Right Femoral artery dressed using a 4 x 4 and Tegaderm. 10:25:09 Post-op/insertion site Left Femoral artery dressed using a 4 x 4 and Tegaderm. 10:25:15 Tegaderm 4 x 4 opened to sterile field. 10:25:29 Post Procedure Pulses reassessed and unchanged 10:25:33 Plavix 600 mg P.O. was given by Pamela Mondragon RN; for antiplatelet therapy; 10:25:35 Post-procedure physical assessment completed. ASA score P 2 - A patient with mild systemic disease as per Ruben Zamudio MD. 10:25:38 Post procedure rhythm: unchanged. 10:25:41 Estimated blood loss: 10 ml 10::43 Post procedure instruction explained to patient.Patient verbalizes understanding. 10:25:44 Patient needs reinforcement of post procedure teaching. 10:26:35 Procedure type changed to Cath procedure, Peripheral Cath Diagnostic Procedure, Cath Peripheral, Cdcai-Rosnkug-Fnt-Off, Peripheral vascular Intervention, Stent, Stent Iliac w/plasty Initial, Stent w/plasty-Iliac Additional 10::39 Procedure Complication : No complications 10:28:35 Procedure and supply charges have been captured, reviewed, submitted and are correct. 10:31:42 See physician's report for complete and final results. 10:31:42 Vital chart was stopped 10::44 Report given to Pre/Post Procedure Room. 10:31:48 Patient transfered to Pre/Post Procedure Room with Stretcher. 10:31:50 Full Disclosure recording stopped 10:31:50 Procedure ended. 10:32:09 ACC-PCI Only Patient was given prescriptions, or instructed by Ruben Zamudio MD to start/continue the following medications upon discharge: Plavix 10:32:54 End room use (Document Last) Intervention Summary Intervention Notes Time ActionType Lesion and Equipment Action# Pressure Duration Attributes Used 10:14:03 Place stent Ostial Cordis 1 11 00:10 Common Linda 7 Iliac, x 39 x Right 135 stent 10:14:03 Place stent Ostial [place] 1 11 00:10 Common Sci Iliac, Left Express LD OTW 8 X 37 X 75 stent Device Usage Item Name Manufacture Quantity Catalog Number Hospital Part Current Min imal Lot# / Charge Number Stock Stock Serial# Code Tegaderm 4 3M 2 [id number] [id number] [id number] 250985 5 x 4 Acist Hand Acist 1 23140 241559 619450 262399 5 Control Medical Systems Inc Acist Acist 1 80613 464899 016243 189460 5 Manifold Medical Systems Inc Acist Acist 1 77824 758032 280640 537123 20 Syringe Medical Systems Inc Bag Microtek 1 2002S 281659 93491 138583 5 Decanter Medical Inc. Medline Cardinal 1 [id number] 185695 45658 947102 5 Cath Pack Health Terumo 5Fr Terumo 1 [id number] 765518 271731 058371 [address] K[address] St Kiko 1 702799 060324 829376 926828 30 260cm J .035 wire Cordis Cardinal 1 [id number] 881921 044248 753175 10 Tempo 5Fr Health UF catheter Merit Merit 2 BU2985 778293 252570 671870 15 Matches Fashion Medical Inflation Kit Cordis 6Fr Cardinal 2 [id number] 846697 802319 952797 1 Brite Tip Health 35cm Sheath Terumo Terumo 1 [id number] 953397 723778 559526 [address] SS 260CM glide wire Terumo [place] 1 TD01 609640 607855 934503 5 TORQUE Scientific DEVICE PLASTIC .038 Terumo 6Fr Terumo 1 [id number] 779499 124293 072716 40 Connelly Sheath [place] Sci [place] 1 [id number] 571421 813475 0 Express LD Scientific OTW 8 X 37 X 75 stent Vascade 6/7 Cardiva 2 [id number] 881763 327398 024776 5 Fr Closure Medical, Device Inc. Cordis Cardinal 1 [id number] 528481 473040 5 Linda 7 x Health 39 x 135 stent Signature Audit [place] Stage Time Signature Unsigned Intra-Procedure 11/05/2016 Leo Yee RT(R) 10:33:23 AM RT(R) 11/06/2016 7:12:35 AM Intra-Procedure 11/06/2016 Leo Yee 7:16:15 AM RT(R) Signatures Monitor : Leo Yee RT Signature : Date : Time : [address] [address]
[2016-11-05 07:44] VITALS: BP 120/69; Ht 165.1 cm; Wt 76.4 kg
[2016-11-05 08:03] LABS: BASOPHILS 0.8 % (0.0-2.0); EOSINOPHILS 1.4 % (0-7); HEMATOCRIT 37.7 % (36.0-48.0); HEMOGLOBIN 12.1 g/dL (12-16); IMMATURE GRANULOCYTES 0.2 % (0-5); LYMPHOCYTES 20.9 % (15-50); MCH 29.1 pg (26.0-34.0); MCHC 32.1 g/dL (31.0-37.0); MCV 90.6 fL (80.0-100.0); MEAN PLATELET VOLUME 9.8 fL (7.4-10.4); MONOCYTES 15.1 % (2-11); NEUTROPHILS 61.6 % (40-80); PLATELET COUNT 261 10x3/uL (130-400); RBC 4.16 10x6/uL (4.00-5.40); RDW 15.1 % (11.5-14.5); WBC 5.1 10x3/uL (4.8-10.8)
[2016-11-05 08:12] LABS: ANION GAP 16.4 mmol/L (8-16); CALCIUM 8.9 mg/dL (8.5-10.1); CARBON DIOXIDE 23.5 mmol/L (21.0-32.0); CREATININE - SERUM 0.9 mg/dL (0.6-1.3); POTASSIUM - SERUM 3.9 mmol/L (3.5-5.1)
--- NOTE | 2016-11-05 10:59 | NUR ---
1045 RECEIVED PT FROM REGIONAL TRANSPORTATION MANAGER, PT IS DROWSY, AWAKENS EASILY TO VERBAL STIMULI. DENIES ANY C/O PAIN OR NAUSEA. IV PATENT AND INFUSING PER ORDERS. DRESSINGS TO BILAT GROIN CDI, NO BLEEDING OR HEMATOMA NOTED AT SITES, PEDAL PULSES PALPABLE. CAP REFILL IS BRISK. PT INSTRUCTED TO KEEP HEAD TO PILLOW AND BILAT LEGS STRAIGHT, PT VERBALIZES UNDERSTANDING. PT DENIES ANY C/O AT THIS TIME. VSS. CALL LIGHT IN REACH.
--- NOTE | 2016-11-05 11:40 | NUR ---
1100 PT DENIES ANY C/O. FRIENDS AT BEDSIDE. DRESSINGS CDI TO BILAT GROINS, NO BLEEDING OR HEMATOMA NOTED. PEDAL PULSES PALPABLE. CALL LIGHT IN REACH. PO FLUIDS AT BEDSIDE. PT IS TOLERATING WITH NO C/O.
--- NOTE | 2016-11-05 11:43 | NUR ---
1145 PT DENIES ANY C/O , BILAT GROIN DRESSINGS ARE CDI, NO BLEEDING OR HEMATOMA NOTED. PEDAL PULSES PALPABLE. PT DENIES NEEDS AT THIS TIME. FRIENDS AT BEDSIDE.
--- NOTE | 2016-11-05 12:16 | NUR ---
1215 SANDWICH TRAY SERVED. DRESSINGS REMAIN CLEAN, DRY AND INTACT. PEDAL PULSES PALPABLE, FRIENDS AT BEDSIDE.
[2016-11-05] MEDS ORDERED: PLAVIX75 MG PO (13:09)
[2016-11-05] MEDS ORDERED: BAYER CHEWABLE81 MG PO (13:11)
--- NOTE | 2016-11-05 13:30 | NUR ---
1330 PT HAS TOLERATED SANDWICH WITH NO C/O NAUSEA. DRESSINGS REMAIN CDI BILAT. PEDAL PULSES PALPABLE. PT DENIES NEEDS AT THIS TIME.
--- NOTE | 2016-11-05 14:38 | NUR ---
1415 IV DC'D WITH CATH INTACT. REVIEWED DC INSTRUCTIONS WITH PT AND FAMILY WHO VERBALIZE UNDERSTANDING. STENT CARDS, VASCADE BOOKLET, AND PLAVIX PRESCRIPTION TO PATIENT. 1430 PT IS DRESSED FOR DC. DRESSINGS TO BILAT GROINS REMAIN CDI, ASSISTED PT TO BATHROOM, PT VOIDED QS. PT AWAITING INTERACTIVE PRODUCER TO PICK HER UP.
--- NOTE | 2016-11-05 15:08 | NUR ---
1505 PT'S RIDE HAS ARRIVED. PT ESCORTED TO PRIVATE AUTO VIA WC BY STAFF WITH FAMILY DRIVING HER HOME.
--- NOTE | 2016-11-06 16:47 | OP ---
PATIENT NAME: NILTON GAVIRIA MEDICAL RECORD: [id number] :52 LOCATION:D.CAT ADMISSION DATE: SURGEON: CORY SIDHU MD DATE OF OPERATION: 11/05/2016 PROCEDURES: 1. Stent placement, iliac right and left. 2. CROP PULLER iliac, right and left. 3. Aortofemoral runoff. 4. Abdominal aortography. INDICATION: Claudication and peripheral vascular disease. PROCEDURE IN DETAIL: After informed consent was obtained and after detailed explanation of risks, benefits as well as alternative therapies, the patient elected to proceed with angiogram and angioplasty. Both femoral areas were prepped and draped in normal sterile fashion. Both femoral arteries were cannulated via modified Seldinger technique with placement of 6-Bhutanese sheath. All catheters exchanged through this sheath. FINDINGS: The abdominal aortography was performed. The catheter was pulled down for aortofemoral runoff. Abdominal aortography reveals no significant abdominal aortic disease. No dissection or aneurysm formation. RIGHT LEG: A. Iliac: The common iliac has 80+ percent stenosis at the ostium. Otherwise, the iliac have only mild irregularities. B. Femoral system: The common superficial and deep femoral moderate irregularities, but no flow-limiting stenosis. C. Popliteal and infrapopliteal vessels are widely patent with good 3-vessel runoff to the foot. LEFT LEG: A. Iliac: The common iliac has an 80+ percent stenosis at the ostium. Otherwise, the iliac have only mild irregularities. B. Femoral system: The common superficial and deep femoral have moderate irregularities, but no flow-limiting stenosis. C. Popliteal and infrapopliteal vessels are widely patent with good 3-vessel runoff to the foot. CROP PULLER STENT OF BOTH ILIACS: The left iliac was addressed with a 7 x 40 [place] Scientific Express and the right iliac with a 7 x 40 Cordis Linda and 8 balloon was then reinflated on the right. Result was 0% residual stenosis. OVERALL IMPRESSION: Successful percutaneous transluminal angioplasty stent of both the iliacs going from 80+ percent initial stenosis to 0% residual. TRANSINT:[id number] Voice Confirmation ID: [id number] DOCUMENT ID: [id number] OPERATIVE REPORT [id number] KHADRANILTON HARKINS CORY SIDHU MD at 8354 CC: [id number] DICTATION DATE: 11/05/16 1025 TECHNOLOGY SERVICES MANAGER: 11/05/16 1123 DEP CLI 11/05/16 [place] [id number] [place] [id number]
[2017-01-02] MEDS ORDERED: ZESTRIL10 MG PO (12:14)
== END 2016-11-05 15:05 | disposition home or self-care (01) ==
LOC: D.CATH 07:30
PROVIDERS: Internal Medicine Interventional Cardiology
DX: I70.213 Atherosclerosis of native arteries of extremities with intermittent claudication, bilateral legs (principal)

== ENCOUNTER → 2016-12-27 17:22 | Outpatient (CLI) | payer MEDICARE, OTHER ==
[2016-11-05 07:44] VITALS: BMI 28.0
[~2016-12-27 17:22] MED LIST changes: +LIPITOR40 MG PO; -LIPITOR80 MG PO
== END | disposition home or self-care (01) ==
LOC: D.MAMMO 13:15
DX: Z12.31 Encounter for screening mammogram for malignant neoplasm of breast (principal)

== ENCOUNTER 2017-01-03 09:30 | Inpatient (IN) | payer MEDICARE, OTHER ==
--- NOTE | 2017-01-02 13:49 | NUR ---
LONGO APPT: PATIENT REPORTS TAKING PLAVIX 75MG DAILY DUE TO RECENT STENT PLACEMENT IN LEGS. IVETTE AT DR. BRISENO'S OFFICE NOTIFIED, SHE WILL CALL PATIENT WILL FURTHER INSTRUCTIONS.
[~2017-01-03] VITALS: Ht 165.1 cm; Wt 71.8 kg
[2017-01-03 08:51] LABS: BASOPHILS 0.6 % (0-2); EOSINOPHILS 4.8 % (0-7); HEMATOCRIT 44.8 % (36.0-48.0); HEMOGLOBIN 14.2 g/dL (12-16); IMMATURE GRANULOCYTES 0.2 % (0-5); LYMPHOCYTES 13.6 % (15-50); MCH 28.3 pg (26.0-34.0); MCHC 31.7 g/dL (31.0-37.0); MCV 89.2 fL (80.0-100.0); MEAN PLATELET VOLUME 10.5 fL (7.4-10.4); MONOCYTES 7.1 % (2-11); NEUTROPHILS 73.7 % (40-80); PLATELET COUNT 228 10x3/uL (130-400); RBC 5.02 10x6/uL (4.00-5.40); RDW 15.2 % (11.5-14.5); WBC 8.8 10x3/uL (4.8-10.8)
[2017-01-03 08:59] LABS: APTT 25.8 SECONDS (22.8-39.4); INR 1.03 (0.85-1.17); PROTIME 13.4 SECONDS (11.6-15.0)
[2017-01-03 09:00] LABS: APPEARANCE HAZY (CLEAR); BILIRUBIN NEGATIVE (NEGATIVE); COLOR YELLOW (YELLOW); GLUCOSE NEGATIVE (NEGATIVE); KETONE NEGATIVE (NEGATIVE); LEUKOCYTE ESTERASE NEGATIVE (NEGATIVE); NITRITE NEGATIVE (NEGATIVE); PROTEIN NEGATIVE (NEGATIVE); SPECIFIC GRAVITY 1.015 (1.005-1.020); UROBILINOGEN NORMAL (NORMAL)
[2017-01-03 09:10] LABS: ANION GAP 12.5 mmol/L (8-16); CALCIUM 8.7 mg/dL (8.5-10.1); CARBON DIOXIDE 28.6 mmol/L (21.0-32.0); CREATININE - SERUM 1.1 mg/dL (0.6-1.3); POTASSIUM - SERUM 3.1 mmol/L (3.5-5.1)
[~2017-01-03 09:30] MED LIST changes: -LIPITOR40 MG PO; +LIPITOR80 MG PO; +ZESTRIL10 MG PO
[2017-01-03] MEDS ORDERED: VOLTAREN100 GM TOPICAL (09:59)
[2017-01-03] MEDS ORDERED: PROTONIX40 MG PO (10:00)
[2017-01-03] MEDS ORDERED: BACTROBAN NASAL1 GM NASAL (10:01)
[2017-01-07] VITALS (12 sets, daily range): BP systolic 99–127; BP diastolic 56–109; Ht 165.1 cm; Wt 71.8 kg
--- NOTE | 2017-01-07 11:28 | NUR ---
CALLED STEFAN, NURSE PRACTITIONER WITH . NOTIFIED HER THAT THERE IS AN ORDER FOR ELIQUIS AND PLAVIX, BOTH TO START TODAY. SHE STATED "HOLD THE PLAVIX AND CHANGE THE ELIQUIS FIRST DOSE TO START AT 2100." CALLED PHARMACY SPOKE WITH JAIDA, ASKED HIM TO CHANGE THE START TIME FOR ELIQUIS.
--- NOTE | 2017-01-07 13:56 | OP ---
PATIENT NAME: NILTON GAVIRIA MEDICAL RECORD: [id number] :52 LOCATION:D.MS [id number] ADMISSION DATE:01/07/17 SURGEON: DILIP BRISENO MD DATE OF OPERATION: 01/07/2017 PREOPERATIVE DIAGNOSIS: Severe degenerative arthritis of the right knee. POSTOPERATIVE DIAGNOSIS: Severe degenerative arthritis of the right knee. PROCEDURE: Right total knee arthroplasty. SURGEON: Dilip Briseno MD ANESTHESIA: General. INTRAOPERATIVE COMPLICATIONS: None. SUMMARY OF PATHOLOGIC FINDINGS: The patient had severe tricompartmental osteoarthritis of the knee. IMPLANTS USED: Parabel triathlon press-fit total knee arthroplasty system, 5 femur, 16 polyethylene insert, 5 tibial baseplate, 31 press-fit patellar component. OPERATIVE SUMMARY IN DETAIL: After obtaining the appropriate preoperative orthopedic surgery consent as well as anesthetic consultation, evaluation and clearance, the patient was brought to the operating room and placed on the operating table in supine position. After general laryngeal mask was administered, tourniquet was placed about the proximal aspect of the right lower extremity. Right lower extremity was then prepped and draped in a routine sterile fashion. The leg was elevated and exsanguinated, tourniquet inflated to 350 mmHg. Routine midline incision was taken down for paramedian arthrotomy. Patella was everted, distal femur was exposed. Soft tissue excision, osteophyte excision was done in the usual fashion. Distal intramedullary guide hole was created for distal femoral cutting. Having completed this, the proximal tibia was exposed in its entirety, again and soft tissue excision was done in the usual fashion. Intramedullary guide hole was created for intramedullary guided tibial cut. Tibial cut was made. Balancing was undertaken. A chamfer cuts were made for a size 5 on the distal femur. Trials were put in corresponding to the above-mentioned final trials and found to be in good range of motion. Final distal femoral and proximal tibial preparations were made. This was followed by excising the severely arthritic surface of the patella with removal of osteophytes and prepared the patella for a 31 press-fit implant. The knee was copiously irrigated using the pulsatile lavage system. Bony ends were dried. The tibial baseplate was press-fit into place followed by placement of the polyethylene. The femur was then put into place. Smooth articulation was noted with good balance in all planes. Finally, the patella was press-fit into place and held using the press-fitting device. Wound was copiously irrigated and closed. Paramedian arthrotomy was closed with #2 Ethibond followed by #1 Vicryl, 2-0 Vicryl and skin hortensia for final closure. Sterile dressings were applied. Tourniquet was deflated. The patient was awakened, taken to recovery in stable condition. All final needle and sponge counts were correct. TRANSINT:[id number] Voice Confirmation ID: [id number] DOCUMENT ID: [id number] OPERATIVE REPORT [id number] NILTON GAVIRIA MD, DILIP GARCIA at 1356 CC: [id number] DICTATION DATE: 01/07/17902 BUTTON PUSHER: 01/07/17 0959 ADM IN [facility] [address] [place] [address]
--- NOTE | 2017-01-07 19:00 | NUR ---
PATIENT IN BED ON CPM. HOB 40 DEGREES. AWAKE AND ALERT WITH INTERMITTENT CONFUSION. RR EVEN AND UNLABORED. 0 S/S OF DISTRESS. DENIES PAIN AT THIS TIME. IV TO RIGHT HAND PATENT WITH NO REDNESS OR SWELLING. DRESSING TO RIGHT KNEE CDI. SCD'S IN ROOM BUT OFF. B/A ON. SISTER AT BEDSIDE. SRX2. BED LOW. CALL LIGHT WITHIN REACH.
--- NOTE | 2017-01-07 21:30 | NUR ---
PATIENT OFF CPM. NIGHTTIME MEDS GIVEN. NO NEEDS AT THIS TIME.
[2017-01-08] VITALS: BP 122/58
--- NOTE | 2017-01-08 01:30 | NUR ---
PATIENT KEEPS ATTEMPTING TO GET OUT OF BED. PULLED IV TUBING APART. BLED ON LINENS, GOWN, AND FLOOR. BATH GIVEN. LINENS AND GOWN CHANGED.
--- NOTE | 2017-01-08 03:08 | NUR ---
PATIENT REQUESTING BED LONGO ABOUT EVERY 30 MINUTES. KEEPS GETTING IV TUBING TANLGED UP IN HER BEDDING. S/L IV FOR NOW SO PATIENT CAN TRY TO SLEEP.
--- NOTE | 2017-01-08 04:30 | NUR ---
PATIENT'S DRESSING COMPLETELY SOAKED WITH BLOOD. REMOVED FRAN BANDAGE AND AQUACELL, CLEANED INCISION AND REPLACED AQUACELL AND FRAN WRAP. PLACED ICE ON KNEE.
[2017-01-08 05:40] LABS: HEMATOCRIT 36.3 % (36.0-48.0); HEMOGLOBIN 11.3 g/dL (12-16); MCHC 31.1 g/dL (31.0-37.0); MCV 90.1 fL (80.0-100.0); MEAN PLATELET VOLUME 11.2 fL (7.4-10.4); RBC 4.03 10x6/uL (4.00-5.40); RDW 15.4 % (11.5-14.5); WBC 11.8 10x3/uL (4.8-10.8)
--- NOTE | 2017-01-08 07:25 | NUR ---
UPON ENTERING ROOM. PATIENT RESTING QUIETLY WITH EYES CLOSED. PATIENT AROUSED EASILY. PATIENT STATED "WE HAD A FUN NIGHT LAST NIGHT. THEY HAD TO CHANGE MY BED ABOUT 2-3 TIMES." I STATED "I HEARD. I WROTE ON YOUR BOARD UP HERE TO REMIND YOU NOT TO GET UP BY YOURSELF. AND YOUR BED ALARM IS ON." PATIENT VERBALIZED UNDERSTANDING. CPM ON RIGHT LEG. ASSESSED RIGHT EXTREMETY, NO BLOOD VISIBLE ON DRESSING. REMOVED ICE PACK. PALPATED BILATERAL PEDAL PULSES +2 BILATERALLY. NO SIGNS OF DISTRESS NOTED. AUSCULTATED EXPIRATORY WHEEZE IN RIGHT UPPER LOBE. ENCOURAGED PATIENT TO TAKE A DEEP BREATH AND COUGH. PATIENT DID SO, STRONG COUGH. PATIENT DEMONSTRATED USING INCENTIVE SPIROMETER BROUGHT IT UP 2000ML DEVEN. PATIENT VOIDED ON THE BEDPAN. CLEANED PATIENT UP. PATIENT DENIES NEEDS. BED ALARM ON.
[2017-01-08 08:07] VITALS: BP 126/78
--- NOTE | 2017-01-08 09:34 | NUR ---
* Is the patient Alert and Oriented? Yes 0 * How many steps to enter\exit or inside your home? 1 0 * PCP Dr. Pugh 0 * Pharmacy [facility] * Preadmission Environment Home Alone 0 * ADLs Independent 0 * Equipment Bedside Commode Cane Crutch Rolling Walker Shower Chair Wheelchair 0 * List name and contact numbers for known caregivers / representatives who currently or will assist patient after discharge: Sister - Mary Beth Hidalgo [phone] * Additional services required to return to the preadmission environment? Yes 0 * Can the patient safely return to the preadmission environment? Yes 0 * Has this patient been hospitalized within the prior 30 days at any hospital? No 01/08/2017 9:34 DCP: Discharge Planning Patient Name: NILTON GAVIRIA Admission Status: Elective Accout number: [id number] Admission Date: 01-07-2017 : 1950 Admission Diagnosis: Attending: DARÍO Current LOS: 1 Anticipated DC Date: 01-09-2017 Planned Disposition: Outpatient PT\OT Primary Insurance: MEDICARE A & B Discharge Planning Comments: CM met with patient to assess dc plans/needs. Patient states she lives alone in a single level home. She reports she was independent with all ADL's prior to admission. She did have a brief stay at [facility] for physical therapy a few months ago. At dc, she will return home. She states family & friends will assist as needed. She has chosen [facility] for outpatient physical therapy - Appt. scheduled for January 14 at 1015. A CPM has been ordered through [facility] prior to admission by MD office - will be delivered to the home after DC. CM will follow. Tree Warden: Maria Ines Dotson
--- NOTE | 2017-01-08 12:30 | NUR ---
PATIENT SITTING UP IN THE CHAIR. CHON MAT ALARM ON. CALL LIGHT IN REACH. NO SIGNS OF DISTRESS NOTED. FAMILY IN ROOM TALKING WITH PATIENT.
[2017-01-08 12:47] VITALS: BP 148/82
--- NOTE | 2017-01-08 13:49 | NUR ---
PATIENT'S RIGHT KNEE DRESSING SATURATED WITH BLOOD. REMOVED CLEANED WITH STERILE WOUND RIGGING AND CONTROLS AIRCRAFT MECHANIC SPRAY AND 4X4 GAUZE. PATTED DRY WITH 4X4 GAUZE. APPLIED NEW AQUACEL DRESSING. PUT 2 BOXES OF 4X4 GAUZE OVER DRESSING AND WRAPPED WITH KERLIX. THEN WRAPPED WITH FRAN WRAP.
[2017-01-08 16:27] VITALS: BP 149/72
--- NOTE | 2017-01-08 19:00 | NUR ---
PATIENT IN BED ON CPM. HOB 20 DEGREES. AWAKE AND ALERT WITH INTERMITTENT CONFUSION. RR EVEN AND UNLABORED. 0 S/S OF DISTRESS. STATES PAIN IS A 4/10. IV TO RIGHT WRIST S/L WITH NO REDNESS OR SWELLING. DRESSING TO RIGHT KNEE CDI. SCD'S IN ROOM BUT OFF. B/A ON. SISTER AT BEDSIDE. SRX3. BED LOW. CALL LIGHT WITHIN REACH.
[2017-01-08 20:00] VITALS: BP 151/68
--- NOTE | 2017-01-08 22:30 | NUR ---
PATIENT OFF CPM. NIGHTTIME MEDS GIVEN. NO OTHER NEEDS AT THIS TIME.
[2017-01-09 04:00] VITALS: BP 148/68
--- NOTE | 2017-01-09 04:02 | NUR ---
PATIENT SLEEPING WITH NO DISTRESS NOTED. CALL LIGHT WITHIN REACH.
[2017-01-09 06:13] LABS: HEMATOCRIT 37.1 % (36.0-48.0); HEMOGLOBIN 11.6 g/dL (12-16); MCHC 31.3 g/dL (31.0-37.0); MCV 89.6 fL (80.0-100.0); MEAN PLATELET VOLUME 11.2 fL (7.4-10.4); RBC 4.14 10x6/uL (4.00-5.40); RDW 15.7 % (11.5-14.5)
--- NOTE | 2017-01-09 06:19 | NUR ---
ASSISTED PATIENT TO BSC AND BACK TO BED. CPM ON. NORCO GIVEN FOR PAIN.
--- NOTE | 2017-01-09 07:45 | NUR ---
AWAKE, UP TO CHAIR, DENIES NEEDS, CALL LIGHT IN REACH, HOPEFUL FOR DISCHARGE IN AM, WILL CONTINUE TO MONITOR
[2017-01-09 07:50] LABS: POTASSIUM - SERUM 3.2 mmol/L (3.5-5.1)
[2017-01-09 08:57] VITALS: BP 142/77
--- NOTE | 2017-01-09 10:25 | NUR ---
LONGO OF WATER, WASH CLOTHES, SOAP AND TOWELS GIVEN, PT STATED SHE WANTED TO CLEAN UP
[2017-01-09 12:00] VITALS: BP 138/69
--- NOTE | 2017-01-09 13:36 | NUR ---
01/09/2017 13:25 DCP: Discharge Planning CM spoke at length with patient & Jaja lindsay. Jaja verbalizes concerns about patient discharging home. She states there is not any family available to stay with her at discharge. They are concerned about her intermittent bouts of confusion. Patient & family requesting referral be sent to [facility] - [facility] signed, referral faxed. Waiting determination. CM will follow.
--- NOTE | 2017-01-09 13:43 | NUR ---
01/09/2017 13:43 DCP: Discharge Planning Spoke with Pamella at [facility] - they do not have any beds available today, and are not sure they will have any tomorrow. Spoke with patient & Jaja lindsay. Their second choice is [facility]. Referral faxed & called to [facility]. CM will follow.
--- NOTE | 2017-01-09 15:23 | NUR ---
PT CONFUSED AT TIMES WITH FAMILY AT THE BEDSIDE. RESP EVEN AND NONLABORED IV TO LEFT FOREARM PATENT AND INTACT. SRX2 BED AT LOWEST SETTING CALL LIGHT WITHIN REACH
[2017-01-09 17:12] VITALS: BP 136/74
--- NOTE | 2017-01-09 19:00 | NUR ---
PATIENT IN BED ON CPM. HOB 20 DEGREES. AAOX4. RR EVEN AND UNLABORED. 0 S/S OF DISTRESS. STATES PAIN IS A 4/10. IV TO RIGHT WRIST S/L AND TENDER. BANDAGE TO RIGHT KNEE CDI. SCD'S IN ROOM BUT OFF. B/A ON. SISTER AT BEDSIDE. SRX2. CALL LIGHT WITHIN REACH.
[2017-01-09 20:02] VITALS: BP 116/64
--- NOTE | 2017-01-09 22:30 | NUR ---
PATIENT OFF CPM. ASSISTED TO BSC AND BACK TO BED. NIGHTTIME MEDS GIVEN. D/C IV TO RIGHT WRIST WITH CATHETER TIP INTACT.
--- NOTE | 2017-01-09 23:21 | NUR ---
PATIENT SLEEPING WITH NO DISTRESS NOTED. B/A ON. DOOR OPEN.
[2017-01-09 23:48] VITALS: BP 133/74
[2017-01-10 04:00] VITALS: BP 153/79
--- NOTE | 2017-01-10 06:14 | NUR ---
ASSISTED PATIENT TO BSC. FINALLY ABLE TO HAVE BM AFTER 4 DAYS. BACK IN BED ON CPM. NORCO GIVEN FOR PAIN.
--- NOTE | 2017-01-10 07:30 | NUR ---
AWAKE, DENIES NEEDS, CPM ON, AWAITING DISCHARGE, ASSESSMENT COMPLETE, BED LOWEST POSITION, CALL LIGHT IN REACH, WILL CONTINUE TO MONITOR
--- NOTE | 2017-01-10 07:45 | NUR ---
DENIES NEEDS OR PAIN . BED LOW CALL LIGHT IN REACH.
[2017-01-10 08:21] VITALS: BP 146/85
[2017-01-10] MEDS ORDERED: HYDROCODONE-APA1 TAB PO (08:57)
[2017-01-10] MEDS ORDERED: ECOTRIN325 MG PO (08:57)
--- NOTE | 2017-01-10 09:20 | NUR ---
01/10/2017 9:17 DCP: Discharge Planning Rec'd call from Pamella with [facility] - patient has been accepted & can transfer to a nursing home bed today. Transport van will pick patient up at 1030. Nursing to call report to [phone].
--- NOTE | 2017-01-10 10:52 | NUR ---
DISCHARGE PAPERS AND INSTRUCTIONS GIVEN TO PATIENT, REPORT CALLED TO FERNANDA KEARNEY LPN AT [facility], QUESTIONS ANSWERED, DISCHARGED PER WC WITH FACILITY PERSONAL AND BELONGINGS
== END 2017-01-10 10:58 | DRG 470 ==
LOC: D.MS 01-07 05:14 → D.SDCHOLD 01-07 05:14 → D.MS 01-07 08:11 → D.SDCHOLD 01-07 09:30 → D.MS 01-10 10:58
PROVIDERS: ADMIT Orthopaedic Surgery
PROC: 0SRC0JA Replacement of Right Knee Joint with Synthetic Substitute, Uncemented, Open Approach (ICD-10-PCS; principal; 2017-01-07 07:30)
DX: M17.11 Unilateral primary osteoarthritis, right knee (principal); D62 Acute posthemorrhagic anemia; I10 Essential (primary) hypertension; I25.10 Atherosclerotic heart disease of native coronary artery without angina pectoris; E87.6 Hypokalemia

== ENCOUNTER 2018-07-11 19:00 | Outpatient (CLI) | payer MEDICARE, OTHER ==
[2017-01-07 20:34] VITALS: BMI 26.3
[~2018-07-11 19:00] MED LIST changes: +BACTROBAN NASAL1 GM NASAL; +ECOTRIN325 MG PO; +HYDROCODONE-APA1 TAB PO; +PROTONIX40 MG PO
== END 2018-07-11 23:59 | disposition home or self-care (01) ==
LOC: D.MAMMO 19:00
DX: Z12.31 Encounter for screening mammogram for malignant neoplasm of breast (principal)

== ENCOUNTER 2018-08-21 10:28 | Outpatient (CLI) | payer MEDICARE, OTHER ==
[2017-01-07 20:34] VITALS: BMI 26.3
== END 2018-08-21 23:59 | disposition home or self-care (01) ==
LOC: D.MAMMO 10:28
DX: R92.8 Other abnormal and inconclusive findings on diagnostic imaging of breast (principal)

== ENCOUNTER → 2018-09-17 13:21 | Outpatient (CLI) | payer MEDICARE, OTHER ==
[2017-01-07 20:34] VITALS: BMI 26.3
== END | disposition home or self-care (01) ==
LOC: D.US 09-11 13:30
DX: R92.8 Other abnormal and inconclusive findings on diagnostic imaging of breast (principal)

== ENCOUNTER → 2018-10-01 10:49 | Outpatient (CLI) | payer MEDICARE, OTHER ==
[2017-01-07 20:34] VITALS: BMI 26.3
== END | disposition home or self-care (01) ==
LOC: D.US 09-17 13:00
DX: R92.8 Other abnormal and inconclusive findings on diagnostic imaging of breast (principal)

== ENCOUNTER → 2018-10-15 18:44 | Outpatient (CLI) | payer MEDICARE, OTHER ==
[2017-01-07 20:34] VITALS: BMI 26.3
== END | disposition home or self-care (01) ==
LOC: D.MAMMO 08:00
DX: R92.8 Other abnormal and inconclusive findings on diagnostic imaging of breast (principal)

== ENCOUNTER 2019-02-11 19:00 | Outpatient (CLI) | payer MEDICARE, OTHER ==
[2017-01-07 20:34] VITALS: BMI 26.3
== END 2019-02-11 23:59 | disposition home or self-care (01) ==
LOC: D.MAMMO 19:00
PROVIDERS: ATTEND Family Medicine
DX: R92.8 Other abnormal and inconclusive findings on diagnostic imaging of breast (principal)